=== PATIENT | male | born 1945 | race Caucasian/White ===

== ENCOUNTER 2018-01-16 17:09 | Observation (INO) | payer OTHER ==
[~2018-01-16] VITALS: Ht 182.9 cm; Wt 95.3 kg
[2018-01-16 17:16] VITALS: BP 175/89
[2018-01-16 17:29] LABS: ABSOLUTE EOSINOPHILS 0.2 thou/uL (0.0-0.7); ABSOLUTE LYMPHOCYTES 0.9 thou/uL (0.8-5.3); ABSOLUTE MONOCYTES 0.2 thou/uL (0.0-1.2); ABSOLUTE NEUTROPHILS 3.2 thou/uL (1.6-8.1); BASOPHILS 1.1 %; EOSINOPHILS 3.4 %; HEMATOCRIT 46.3 % (42.0-52.0); HEMOGLOBIN 15.9 gm/dL (14.0-18.0); LYMPHOCYTES 20.1 %; MCHC 34.3 g/dL (28.0-37.0); MCV 87.5 fL (80.0-100.0); MONOCYTES 5.1 %; MPV 8.9 fl. (7.2-11.1); NUCLEATED RBCS 1 /100WBC; PLATELET COUNT* 173 thou/uL (150-400); POLYS 70.3 %; RDW-CV 12.7 % (10.5-14.5); WBC 4.5 thou/uL (4.0-11.0)
[2018-01-16 17:38] LABS: ANION GAP 11 mmol/L (7-16); BUN 16 mg/dL (7-18); CALCIUM 9.6 mg/dL (8.5-10.1); CHLORIDE 96 mmol/L (98-107); CO2 25 mmol/L (21-32); CREATININE 1.2 mg/dL (0.6-1.3); GLUCOSE 399 mg/dL (70-99); POTASSIUM 3.5 mmol/L (3.5-5.1); SODIUM 132 mmol/L (136-145)
[2018-01-16 17:47] LABS: APTT 24.8 Seconds (25.0-31.3); PROTIME 9.4 Seconds (9.20-11.50)
[2018-01-16 17:53] LABS: ALBUMIN 4.2 g/dL (3.4-5.0); ALKALINE PHOSPHATASE 70 U/L (46-116); NT-PRO BRAIN NAT PEPTIDE 382 pg/mL (<300); SGOT 14 U/L (15-37); SGPT 24 U/L (30-65); TOTAL BILIRUBIN 0.7 mg/dL (<0.1-1.0); TOTAL PROTEIN 7.7 g/dL (6.4-8.2); TROPONIN-I LEVEL <0.06 ng/mL (<0.06)
[2018-01-16 19:45] VITALS: BP 149/79
[2018-01-16 20:10] VITALS: BP 186/93
[2018-01-17] VITALS: BP 107/61
[2018-01-17 04:00] VITALS: BP 132/74
[2018-01-17 05:41] LABS: CHOLESTEROL 144 mg/dL (<200); HDL CHOLESTEROL 42 mg/dL (>40); LDL CHOLESTEROL 83 mg/dL (<100); TC:HDL 3.4 Ratio (Not establshd); TRIGLYCERIDE 96 mg/dL (<150); VLDL 19 mg/dL (<40)
[2018-01-17 05:45] LABS: SERUM ASSESSMENT Clear
[2018-01-17 08:00] VITALS: BP 167/84
[2018-01-17] MEDS ORDERED: LISINOPRIL10 MG PO (08:56)
[2018-01-17] MEDS ORDERED: ATORVASTATIN CA40 MG PO (08:56)
[2018-01-17] MEDS ORDERED: ADULT LOW DOSE81 MG PO (08:56)
[2018-01-17] MEDS ORDERED: GLUCOPHAGE XR500 MG PO (08:56)
[2018-01-17] MEDS ORDERED: ANTIVERT25 MG PO (08:56)
[2018-01-17 09:58] VITALS: BP 167/84
[2018-01-18 02:05] LABS: GLYCOHEMOGLOBIN (HGB A1C) 12.4 % (4.8-5.6)
--- NOTE | 2018-01-18 10:23 | EKG ---
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: [facility] : 1945 Requested By: Jackson Rodrigues Order Number: [id number] : Shayne Jarquin Measurements Intervals [place] Rate: 74 P: 12 NM: 179 QRS: 5 QRSD: 103 T: 12 QT: 410 QTc: 455 Interpretive Statements Sinus rhythm Inferior infarct, old No previous ECG available for comparison Electronically Signed On 01-18-2018 10:23:04 CDT by Shayne Jarquin [email or web address] <ELECTRONICALLY SIGNED> By: Shayne Jarquin MD, [facility] 01/18/18 1023 1717 171 Shayne Jarquin MD, [facility] /EPI
== END 2018-01-17 11:30 | disposition home or self-care (01) ==
LOC: M.ERS 17:09 → M.2W 18:51 → M.TBA-ER 18:51 → M.2W 20:04
PROVIDERS: Family Medicine; ADMIT Internal Medicine
DX: R42 Dizziness and giddiness (principal); E11.65 Type 2 diabetes mellitus with hyperglycemia; I10 Essential (primary) hypertension; E78.5 Hyperlipidemia, unspecified

== ENCOUNTER 2019-02-12 11:46 | Inpatient (IN) | payer OTHER ==
[~2019-02-12] VITALS: Ht 182.9 cm; Wt 100.6 kg
--- NOTE | ~2019-02-12 | PROC ---
[facility] [address] [place] [address] PROCEDURE REPORT Name: TABITHA AVILES Room: [address]#: [id number] Admission: 02/12/19 Attend Phys: Katia Gordon Discharge: 03/04/19 Date of : 47 Report #: [id number] THIS REPORT FOR: //name// For GI report, please see the Provation report in Perceptive 7 content. By: 0607Medical Records Staff IRAIDA /JAMES
[~2019-02-12 11:46] MED LIST: ADULT LOW DOSE81 MG PO; ANTIVERT25 MG PO; ATORVASTATIN CA40 MG PO; GLUCOPHAGE XR500 MG PO; LISINOPRIL10 MG PO
[2019-02-12 11:51] VITALS: BP 139/77
[2019-02-12 12:23] LABS: HEMATOCRIT 38.5 % (42.0-52.0); HEMOGLOBIN 12.9 gm/dL (14.0-18.0); MCHC 33.6 g/dL (28.0-37.0); MCV 86.3 fL (80.0-100.0); MPV 8.4 fl. (7.2-11.1); NUCLEATED RBCS 0 /100WBC; PLATELET COUNT* 238 thou/uL (150-400); RBC 4.46 mil/uL (4.50-6.00); RDW-CV 12.7 % (10.5-14.5); WBC 14.2 thou/uL (4.0-11.0)
[2019-02-12 12:35] LABS: CALCIUM 9.1 mg/dL (8.5-10.1); CREATININE 1.2 mg/dL (0.6-1.3)
[2019-02-12 12:39] LABS: ALBUMIN 2.8 g/dL (3.4-5.0); TOTAL BILIRUBIN 0.9 mg/dL (<0.1-1.0); TOTAL PROTEIN 7.3 g/dL (6.4-8.2)
[2019-02-12 13:03] LABS: ABSOLUTE LYMPHOCYTES 0.7 thou/uL (0.8-5.3); ABSOLUTE MONOCYTES 0.6 thou/uL (0.0-1.2); ABSOLUTE NEUTROPHILS 12.9 thou/uL (1.6-8.1); ANISOCYTOSIS 1+; PLATELET ESTIMATE ADEQUATE; POIKILOCYTOSIS 1+
[2019-02-12 13:32] LABS: ESR (SEDRATE) 73 mm/hr (0-20)
[2019-02-12 14:36] VITALS: BP 103/61
[2019-02-12 15:00] VITALS: BP 99/48
--- NOTE | 2019-02-12 16:12 | NUR ---
RECEIVED REPORT FROM ER AT 1500. GET SITUATED TO ROOM. TELE IN PLACED TRACING SR ON MONITOR. AOX4, UP SBA, O2 SAT 90'S RA. DENIES PAIN. PT HAS L HEEL FOUL SMELLING WOUND AND L LOWER EXTREMITY EDEMA NOTED. ADMISSION ASSESSMENT CHARTED. BP RUNS LOW. ON IV FLUIDS. 2 IV ACCESS INTACT. PT REPORT NOT TAKING ANY HOME MEDS. PT FOR ACCU CHECK. HOURLY ROUNDING OBSERVED. CALL LIGHT WITHIN REACH. WILL CONTINUE TO MONITOR.
[2019-02-12 20:56] VITALS: BP 121/57
[2019-02-13] VITALS: BP 112/54
[2019-02-13 04:00] VITALS: BP 105/59
[2019-02-13 05:20] LABS: ABSOLUTE LYMPHOCYTES 0.3 thou/uL (0.8-5.3); ABSOLUTE MONOCYTES 0.6 thou/uL (0.0-1.2); ABSOLUTE NEUTROPHILS 8.7 thou/uL (1.6-8.1); BASOPHILS 0.2 %; EOSINOPHILS 0.3 %; HEMATOCRIT 32.5 % (42.0-52.0); HEMOGLOBIN 11.2 gm/dL (14.0-18.0); LYMPHOCYTES 2.9 %; MCH 29.5 pg (26.0-34.0); MCHC 34.5 g/dL (28.0-37.0); MCV 85.6 fL (80.0-100.0); MONOCYTES 6.2 %; MPV 8.9 fl. (7.2-11.1); NUCLEATED RBCS 0 /100WBC; PLATELET COUNT* 184 thou/uL (150-400); POLYS 90.4 %; RBC 3.79 mil/uL (4.50-6.00); RDW-CV 12.8 % (10.5-14.5); WBC 9.6 thou/uL (4.0-11.0)
[2019-02-13 05:38] LABS: ALBUMIN 2.1 g/dL (3.4-5.0); CALCIUM 8.1 mg/dL (8.5-10.1); CREATININE 1.3 mg/dL (0.6-1.3); POTASSIUM 3.8 mmol/L (3.5-5.1); TOTAL BILIRUBIN 0.4 mg/dL (<0.1-1.0); TOTAL PROTEIN 5.8 g/dL (6.4-8.2)
[2019-02-13 08:00] VITALS: BP 115/61
--- NOTE | 2019-02-13 08:13 | NUR ---
PT IS ABLE TO COMMUNICATE HIS NEEDS TO STAFF EFFECTIVELY. HE HAS DENIED THE NEED FOR PAIN MEDICATION UP TO THIS TIME. HE HAS BEEN NPO SINCE MIDNIGHT FOR PODIATRY CONSULT LATER TODAY. LEFT HEEL HAD SOME FOUL SMELLING, PURULENT DRAINAGE OVERNIGHT; GAUZE AND CURLEX APPLIED.
--- NOTE | 2019-02-13 10:10 | NUR ---
WOUND CARE CONSULT - 73 YEAR OLD MALE PATIENT ADMITTED ON 02/12/19 WITH SEVERE SEPSIS, DIABETIC FOOT ULCER, SEVERE MALNUTRITION, CKD, DIARRHEA & DM. PATIENT VERY LETHARGIC, SO MOST OF HISTORY PROVIDED BY . SHE REPORTS THAT HE RECENTLY REPORTED THAT APPROXIMATELY ONE WEEK AGO, HE STEPPED ON "SOMETHING", AND HE HAD BEEN TREATING WITH NEOSPORIN. SHE ONLY RECENTLY LEARNED ABOUT IT, HE WAS UP AND AMBULATORY OVER THE WEEKEND, WITH NO COMPLAINTS. HE WAS DIAGNOSED WITH DIABETES SEVERAL YEARS AGO, AND PRESCRIBED SOME DIABETES MEDICATION LAST YEAR, BUT HE DOES NOT ADHERE TO DIABETES DIET, TAKE MEDICATIONS OR MONITOR HIS BLOOD SUGARS. HIS HgbA1c WAS 12.8 LAST JANUARY 2018, PENDING NOW. SHE DENIES ANY HISTORY OF SMOKING. HIS LEFT FOOT HAS GENERALIZED 2-3+ EDEMA, MAKING PEDAL PULSES DIFFICULT TO PALPATE, BUT FAINTLY PALPABLE. HE HAS A LARGE BLACK ESCHAR TO HIS POSTERIOR HEEL, APPROXIMATELY 5.2 X 4 CM. UNDERLYING TISSUE IS VERY BOGGY, BUT UNABLE TO DETERMINE ANY DEPTH WITH COTTON SWAB. HE HAS AN ADJACENT NECROTIC AREA ON PLANTAR SURFACE OF HIS FOOT, 1.8 X 0.5 CM. WHICH EXTENDS AT LEAST 2 CM, WITH NECROTIC BLACK MOIST TISSUE IN BASE. NO BONE OR FOREIGN BODY PALPABLE WITH STERILE COTTON SWAB. INTENSE ERYTHEMA SURROUNDING POSTERIOR WOUND IS APPROXIMATELY 14 X 11 CM AND PLANTAR WOUND 14 X 9 CM. TISSUE VERY WARM TO TOUCH AND EXTREMELY TENDER. SMALL AMOUNTS OF ESPINOZA VERY MALODOROUS DRAINAGE FROM BOTH WOUNDS. FOOT CLEANSED WITH SKIN CLEANSER AND WATER, RINSED WELL AND APPLIED ABD & ROLLED GAUZE FOR NOW. TEMP TO 101 YESTERDAY. WBC 14.2 ON ADMISSION, DOWN TO 9.6. H&H 11.2/32.5, ALBUMIN 2.8, HgbA1c PENDING. BLOOD CULTURE X 1 WITH GRAM POSITIVE COCCI, WOUND CULTURE PENDING. XRAY WITH POSSIBLE FOREIGN BODY, AND SUBCUTANEOUS GAS, WITH FASCIITIS NOT EXCLUDED. PATIENT GOING NOW FOR ARTERIAL DOPPLER. PATIENT SEEN BY DR. MURDOCK FROM [facility], NOTING NO SURGERY INDICATED. DR ALEX, PODIATRY, HAS BEEN CONSULTED & I ADVISED OF THE SERIOUS APPEARANCE OF FOOT. HE PLANS TO SEE SHORTLY AND HAS SCHEDULED FOR SURGERY THIS AFTERNOON.
[2019-02-13 11:22] VITALS: BP 100/53
--- NOTE | 2019-02-13 11:27 | NUR ---
SW met with pt to complete initial assessment, introduce self, and SW role, pt was in radiology but came back into the room. Pt lives at home with his . Pt on iv abx; pt thinks that he might be on iv abx for 5 days; pt says she would be able to help with wound care at home and interested in OP iv abx if needed at dc. Pt has RW. SW to continue to follow to assist with safe dc planning.
--- NOTE | 2019-02-13 18:52 | NUR ---
ASSUMED PT CARE REPORT RECEIVED FROM NURSE. PT IS AOX4. TRACING SR ON RAND MAKER. PT ON RA. TYLENOL GIVEN FOR INCREASED TEMPERATURE WHICH WAS RESOLVED LATER THIS SHIFT. WOUND CARE PERFORMED BY WOUND CARE NURSE IN ROOM. THEN PT WENT FOR SX AT 1500 IN L FOOT. DEBRIDEMENT PERFORMED. LEFT FOOT WELL WRAPPED WITH VALENTINA CO BAND, BOOT APPLIED. PT COMPLAINS OF PAIN IN L FOOT. NORCO GIVEN. IV FLUID INFUSING ORDERED. IV ABX GIVEN THIS SHIFT ORDERED. UA PENDING. DIET RESTARTED. INSULIN GIVEN BEFORE DINER. CALL LIGHT AT REACH. WILL CONTINUE TO MONITOR
[2019-02-13 20:54] VITALS: BP 107/56
[2019-02-14] VITALS: BP 98/53
[2019-02-14 02:06] LABS: GLYCOHEMOGLOBIN (HGB A1C) 13.8 % (4.8-5.6)
[2019-02-14 04:00] VITALS: BP 120/63
--- NOTE | 2019-02-14 05:29 | NUR ---
PT IS ABLE TO COMMUNICATE HIS NEEDS TO STAFF WITH ONLY MINOR DIFFICULTY; HE IS DROWSY AT TIMES. HE HAS DENIED THE NEED FOR PAIN MEDICATION UP TO THIS TIME. PARTIAL WT BEARING TO HIS LEFT FOOT. VASCULAR SURGERY, PODIATRY, ID ARE CONSULTED.
[2019-02-14 08:00] VITALS: BP 92/47
--- NOTE | 2019-02-14 10:58 | NUR ---
ASSUMED PT CARE REPORT RECEIVED FROM NURSE. PT IS AOX4 , TRACING SR ON NEUROSCIENTIST, ON RA O2 SATURATION IS 94%. PT DENIES PAIN, N/V. BUT PT IS VERY SLEEPY AND HAD POOR APPETITE. ENSURE GIVEN AND CONSUMED COMPLETELY BY PT. PT ATE SMALL AMOUNT OF HER BREAKFAST. INSULIN GIVEN ORDERED. AT BEDSIDE. IV FLUID INFUSING WELL IV ABX. NURSE WILL MONITOR FOR URINARY RETENTION WITH BLADDER SCANNING AT 1200 TODAY. WOUND SITE AT L FOOT IS INTACTLY WRAPPED WITH VALENTINA CO BAND. WILL CONTINUE TO MONITOR
[2019-02-14 11:18] VITALS: BP 117/60
--- NOTE | 2019-02-14 13:12 | NUR ---
PT BLADDER SCANNED AT 1300. 153 CC. IV FLUID STOPPED PER DR ORDER. ZOSYN INFUSING. PT HAS HICKUPS.DR ORDERS IN. WILL FOLLOW
--- NOTE | 2019-02-14 14:49 | NUR ---
CRITICAL LAB VALUE FOR VANCO COMMUNICATED TO THIS NURSE BY LABORATORY AT 1414. VANCO 29. THIS NURSE CONTACTED INFECTIOUS DISEASE DOCTOR TO LET HIM KNOW.MESSAGE LEFT. VANCO HAS BEEN HELD PER PHARMACY PER PROTOCOL. THROUGH TIME TO BE RECHECKED PER PROTOCOL
[2019-02-14 15:57] VITALS: BP 118/55
--- NOTE | 2019-02-14 16:56 | NUR ---
pt bladder scanned at this time. scan shows retention of 424cc. dr made aware. no urination recorded for the day.pt denies any urination as well for the day.
--- NOTE | 2019-02-14 18:43 | NUR ---
UROLOGY CONSULTED. TILLMAN CATHETER INSERTED ORDERED. PT WAS IN LOT OF PAIN WHILE INSERTING TILLMAN CATHETER. URINE OUTPUT OF 200 CC DARK YELLOW WITH SEDIMENT COLLECTED FROM TILLMAN BAG. NORCO GIVEN FOR PAIN. PT HAD AN EPISODE OF INCONTENENT BOWEL MOVEMENT IN BED. PT WAS CLEANED. WILL CONTINUE TO MONITOR PT
--- NOTE | 2019-02-14 18:48 | NUR ---
WOUND IN LEFT FOOT IS WELL WRAPPED POST SX. NO DRAINAGE. TOES ARE SWOLLEN AND KEPT ELEVATED IN BOOT. TOES ARE WARM TO TOUCH
[2019-02-14 20:46] VITALS: BP 106/54
[2019-02-15] VITALS: BP 94/46
[2019-02-15 04:00] VITALS: BP 119/59
[2019-02-15 04:33] LABS: URINE BILIRUBIN NEGATIVE (Negative); URINE BLOOD 3+ (Negative); URINE CLARITY SL CLOUDY; URINE COLOR YELLOW; URINE GLUCOSE-RANDOM NEGATIVE (Negative); URINE KETONES NEGATIVE (Negative); URINE LEUKOCYTES-REFLEX 1+ (Negative); URINE NITRITE-REFLEX NEGATIVE (Negative); URINE PROTEIN TRACE (Negative); URINE UROBILINOGEN 0.2 E.U./dl (0.2-1.0)
[2019-02-15 04:42] LABS: AMORPHOUS URATES Moderate /LPF (None Seen); BACTERIA-REFLEX 1-9 Few /HPF (None Seen); COARSE GRANULAR CASTS 0-3 Few /LPF (None Seen); HYALINE CASTS 0-3 Few /LPF (None Seen); SQUAMOUS 0-3 Few /LPF (0-3); URINE RBC >20 Many /HPF (0-2); URINE WBC-REFLEX 6-15 Few /HPF (0-5)
--- NOTE | 2019-02-15 06:05 | NUR ---
PT IS ABLE TO COMMUNICATE HIS NEEDS TO STAFF EFFECTIVELY. HE HAS DENIED THE NEED FOR PAIN MEDICATION UP TO THIS TIME. TILLMAN IS PATENT. URINE SENT TO LAB IS HIGHLY SUSPICIOUS FOR A UTI; HE IS ALREADY RECEIVING ANTIBIOTICS.
[2019-02-15 07:40] VITALS: BP 104/51
[2019-02-15 09:53] LABS: ABSOLUTE BASOPHILS 0.1 thou/uL (0.0-0.2); ABSOLUTE EOSINOPHILS 0.1 thou/uL (0.0-0.7); ABSOLUTE LYMPHOCYTES 0.5 thou/uL (0.8-5.3); ABSOLUTE MONOCYTES 0.7 thou/uL (0.0-1.2); ABSOLUTE NEUTROPHILS 9.1 thou/uL (1.6-8.1); BASOPHILS 0.6 %; EOSINOPHILS 1.4 %; HEMATOCRIT 32.9 % (42.0-52.0); LYMPHOCYTES 4.5 %; MCH 29.1 pg (26.0-34.0); MCHC 33.4 g/dL (28.0-37.0); MCV 87.2 fL (80.0-100.0); MONOCYTES 6.3 %; MPV 8.9 fl. (7.2-11.1); NUCLEATED RBCS 0 /100WBC; PLATELET COUNT* 201 thou/uL (150-400); POLYS 87.2 %; RBC 3.78 mil/uL (4.50-6.00); RDW-CV 13.5 % (10.5-14.5); WBC 10.4 thou/uL (4.0-11.0)
[2019-02-15 10:04] LABS: ALBUMIN 1.7 g/dL (3.4-5.0); CALCIUM 8.4 mg/dL (8.5-10.1); POTASSIUM 3.7 mmol/L (3.5-5.1); TOTAL BILIRUBIN 0.5 mg/dL (<0.1-1.0); TOTAL PROTEIN 6.1 g/dL (6.4-8.2)
[2019-02-15 10:08] LABS: CREATININE 2.9 mg/dL (0.6-1.3)
--- NOTE | 2019-02-15 10:29 | CON ---
[address] [address] CONSULTATION Name: TABITHA AVILES Room: [address] IN .R.#: [id number] Admission: 02/12/19 Attend Phys: Katia Gordon Discharge: Date of : 47 Report #: [id number] THIS REPORT FOR: //name// CC: Carola Montalvo DATE OF SERVICE: 02/12/2019 CONSULTATION: Infectious diseases. 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 The patient gives no history of trauma or predisposing circumstance. He noted about 7-10 days ago, the hindfoot on the left side was becoming red, warm, increasingly tender. The foot swelled up. The patient developed possible some fevers and developed GI symptoms with nausea, vomiting, diarrhea, and anorexia. The foot became more painful, so he presented to the hospital where a large necrotic eschar with foul smelling drainage was noted. Infectious Disease consultation was requested. PAST MEDICAL HISTORY: Significant for diabetes. The patient basically has neglected his diabetes. He does not check his sugar, take medication or watch his diet. He does not have a primary care doctor. He probably has not seen a doctor since he was in the ER a year ago with vertigo. The patient also has hypertension which he also was not treating. The patient denies any other medical problems. ALLERGIES: Denies any drug allergies. SOCIAL HISTORY: The patient is . 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 He lives at home with his and brother. He denies history of tobacco, alcohol or drugs. REVIEW OF SYSTEMS: CONSTITUTIONAL: Possibly febrile, but not measured. No rigors. EAR, NOSE AND THROAT: The patient denies headache, sinus congestion, sore throat, trouble swallowing. He does have some generalized weakness and malaise. CHEST: The patient denies cough, chest pain or shortness of breath. No angina, syncope or palpitation. The patient has nausea, some vomiting one episode at least once. He has had some diarrhea. Denies abdominal pain. GENITOURINARY: The patient denies polyuria, polydipsia or frequency. EXTREMITIES: No complaints except for pain in his left foot. PHYSICAL EXAMINATION: GENERAL: The patient appears his stated age, alert, oriented, comfortable, not in any distress. VITAL SIGNS: Temperature is 38.3. [place] [address] CONSULTATION Name: TABITHA AVILES Room: [address]#: [id number] Admission: 02/12/19 Attend Phys: Katia Gordon Discharge: Date of : 47 Report #: [id number] SKIN: Shows obvious change in left foot, described below. No other rash, lesion or exanthem. EAR, NOSE AND THROAT: Negative. Mentation is appropriate. HEART: Sounds S1, S2. Regular rate and rhythm. LUNGS: Clear. ABDOMEN: Belly soft, not tender without mass or organomegaly. EXTREMITIES: The left foot has obvious changes. There are several black eschars on the heel measuring 2-5 cm. They feel somewhat fluctuant underneath the eschar. I was able to produce a minimal amount of fluid with pressure. There is diffuse erythema around the heel and wrapping around up towards the ankle. The left foot is very swollen. I cannot appreciate pulses in the foot because of the edema. The right foot had good pulses. Both feet had good capillary refill and the nails appear to be in good repair. The foot had a foul necrotic odor, noticeable as soon as I [id number] room. LABORATORY DATA: White count was 14.2, hemoglobin 12.9, hematocrit 38.5, platelet 238,000. Electrolytes: Sodium 129, potassium 4.0, chloride 91, bicarbonate 22, BUN 20, creatinine 1.2, glucose 296. Liver function tests are normal. Blood cultures x [address] of the abdomen is unremarkable. IMPRESSION AND PLAN: Deep tissue injury with infection and necrosis. I would like to change antibiotic to vancomycin plus Zosyn. We will obtain cultures for aerobes and anaerobes from the foot. I asked the wound care nurse see the patient tomorrow and measure, photograph, and assess the foot. I would like to have dietitian see the patient regarding possible protein and Martell supplementation as well as a diabetic diet. We will look for metabolic impediments to wound healing such as low thyroid, low zinc as well as check a BNP. We ordered a followup CBC and BMP because of previous abnormalities. I would like to offload the heel using a Primo boot. We will use Silvadene and gauze to the wound. I would like have Dr. Ojeda look at the foot tomorrow. I believe he may benefit from debridement with removal of the eschar, non viable tissue and underneath. The patient may need an MRI to check the bone, although with a history of only 7-10 days of infection, osteomyelitis would be less likely. I appreciate the opportunity of input in the care of this complex patient. I will be happy to follow with you and assist with evaluation. I discussed with the patient the need to take his diabetes seriously as he is at high risk for severe complications such as these foot infections, which lead amputation as well as other problems such as stroke, heart attack, blindness dialysis, etc. <ELECTRONICALLY SIGNED> By: Shashi Negron MD 02/15/19 1029 2204 [id number] Negron MD /nt
[2019-02-15 11:58] VITALS: BP 111/59
--- NOTE | 2019-02-15 13:23 | NUR ---
SW spoke with pt about safe dc planning and SNF recommendation and provided list of SNFs. Pt was uncertain of preferences but was okay with plan. SW spoke with pt who provided preferences: 1) [facility] 2) [facility] 3) [facility]. SW faxed referral to [facility] pending therapy notes. SW to continue to follow to assist with safe dc planning/snf placement. [facility] ph [phone] fax [phone]
--- NOTE | 2019-02-15 15:09 | NUR ---
RIGHT BASILIC VESSEL ACCESSED FOR SINGLE LUMEN PICC. LINE PRE-TRIMMED TO 42CM AND ADVANCED TO THE ZERO SHERRY WITH NO RESISTANCE MET. UPPER ARM CIRCUMFERENCE ABOVE INSERTION SITE= 12 1/2". SHERLOCK MAGNET AND 3CG CONFIRMATION OF TIP TERMINATION AT THE CAVOATRIAL JUNCTION APPRECIATED.STYLET REMOVED, LINE FLUSHED AND REPORT GIVEN TO GENA SHAFER.
--- NOTE | 2019-02-15 15:45 | NUR ---
ASSESSMENT COMPLETE. PT VERY DROSWY MOST OF THE DAY. PT DRANK PROTEIN SHAKE FOR LUNCH. IV FLUIDS STARTED THIS AFTERNOON. PT RESPONDS TO VOICE BUT FALLS BACK TO SLEEP QUICKLY. PT HAD PICC PLACEMENT THIS AFTERNOON. INFUSION NURSE AND THIS NURSE SIGNED CONSENT WITH PATIENT. DRESSING CHANGED BY DR ALEX. UROLOGY CONSULT, WILL LEAVE TILLMAN AT THIS TIME. CASE MANAGEMENT CONSULT FOR PLACEMENT AT [place]. PT/OT CONSULT. SR WITH 1ST DEGREE BLOCK ON TELE MONITOR. THORAZINE GIVEN FOR HICCUPS. Q2 TURN. ACCU CHECK. SEE ASSESSMENT AND VITALS FOR OTHER DETAILS. CALL LIGHT WITHIN REACH. WILL CONTINUE PLAN OF CARE
[2019-02-15 16:00] VITALS: BP 109/55
[2019-02-15 20:00] VITALS: BP 108/50
[2019-02-16] VITALS: BP 119/56
[2019-02-16 04:00] VITALS: BP 115/56
[2019-02-16 04:47] LABS: HEMATOCRIT 30.7 % (42.0-52.0); HEMOGLOBIN 10.3 gm/dL (14.0-18.0); MCH 29.2 pg (26.0-34.0); MCHC 33.4 g/dL (28.0-37.0); MCV 87.4 fL (80.0-100.0); MPV 8.9 fl. (7.2-11.1); NUCLEATED RBCS 0 /100WBC; PLATELET COUNT* 199 thou/uL (150-400); RBC 3.51 mil/uL (4.50-6.00); RDW-CV 13.4 % (10.5-14.5)
[2019-02-16 04:58] LABS: CALCIUM 7.9 mg/dL (8.5-10.1); POTASSIUM 3.7 mmol/L (3.5-5.1)
[2019-02-16 05:03] LABS: CREATININE 3.9 mg/dL (0.6-1.3)
[2019-02-16 06:33] LABS: ABSOLUTE LYMPHOCYTES 0.6 thou/uL (0.8-5.3); ABSOLUTE MONOCYTES 0.1 thou/uL (0.0-1.2); ABSOLUTE NEUTROPHILS 9.3 thou/uL (1.6-8.1); PLATELET ESTIMATE ADEQUATE
[2019-02-16 08:00] VITALS: BP 120/60
[2019-02-16 12:06] VITALS: BP 134/99
--- NOTE | 2019-02-16 13:13 | NUR ---
Spoke with Lucinda at [facility], she will out to complete an onsite on Monday.
[2019-02-16 15:41] VITALS: BP 128/62
--- NOTE | 2019-02-16 16:55 | NUR ---
ASSUMED PT CARE AT 0700, PT ALERT TO SELF AND AND FACT HE IS IN HOSPITAL BUT UNSURE TO WHY. VSS, RA, PORTER MARINA TRACING SINUS RHYTHM WITH 1ST DEGREE AV BLOCK, FULL ASSESSMENT CHARTED. PT POCKETING PILLS IN CHEEK, DR CUETO NOTIFIED AND [facility] ORDERED, PT REFUSING TO EAT BUT WILL TAKE SMALL DRINKS OF WATER AND ENSURE. TILLMAN CATH DRAINING MINIMAL DARK YELLOW URINE WITH MINIMAL SEDIMENT, PATENT AND SECURED BY STATLOCK. PT REMAINS DROWSY, REFUSED TO GET OUT OF BED FOR THERAPY. DRESSING TO LEFT FOOT CLEAN, DRY, AND INTACT, CHANGED BY DR COREAS DAILY, PT DENIES ANY PAIN, HOURLY ROUNDING COMPLETED.
[2019-02-16 20:00] VITALS: BP 108/49
[2019-02-17] VITALS: BP 133/60
[2019-02-17 04:00] VITALS: BP 122/60
[2019-02-17 08:00] VITALS: BP 124/60
[2019-02-17 11:30] VITALS: BP 134/60
[2019-02-17 16:00] VITALS: BP 129/65
[2019-02-17 16:13] LABS: URINE BILIRUBIN NEGATIVE (Negative); URINE BLOOD 2+ (Negative); URINE CLARITY SL CLOUDY; URINE COLOR YELLOW; URINE GLUCOSE-RANDOM NEGATIVE (Negative); URINE KETONES NEGATIVE (Negative); URINE LEUKOCYTES-REFLEX TRACE (Negative); URINE NITRITE-REFLEX NEGATIVE (Negative); URINE PROTEIN TRACE (Negative); URINE SPECIFIC GRAVITY 1.015 (1.005-1.030); URINE UROBILINOGEN 0.2 E.U./dl (0.2-1.0)
[2019-02-17 16:20] LABS: URINE POTASSIUM-RANDOM 13.6 mmol/L
[2019-02-17 16:27] LABS: AMORPHOUS URATES Moderate /LPF (None Seen); COARSE GRANULAR CASTS 4-10 Moderate /LPF (None Seen); SQUAMOUS 0-3 Few /LPF (0-3)
[2019-02-17 16:28] LABS: BACTERIA-REFLEX 1-9 Few /HPF (None Seen); URINE RBC 3-10 Few /HPF (0-2); URINE WBC-REFLEX 6-15 Few /HPF (0-5)
--- NOTE | 2019-02-17 18:05 | NUR ---
ASSUMED PT CARE AT 0700, PT A&O TO SELF, FAMILY MEMBERS AND PLACE, APPEARS MORE ALERT AND LESS LETHARGIC COMPARED TO YESTERDAY. PT C/O PAIN IN LEFT FOOT AT SURGICAL SITE, PRN FENTANYL AND NORCO ON BOARD. PT ABLE TO EAT SMALL BITES OF SOFT FOODS THIS SHIFT. TILLMAN PATENT AND DRAINING YELLOW URINE WITH MINIMAL SEDIMENT. DR EGAN IN FOR DRESSING CHANGE, DRESSING TO WOUND CLEAN, DRY, AND INTACT, PICTURES TAKEN AND PLACED IN CHART. REMAINS AT BEDSIDE, HOURLY ROUNDING COMPLETED.
[2019-02-17 20:00] VITALS: BP 126/65
[2019-02-18] VITALS: BP 113/72
[2019-02-18 04:00] VITALS: BP 127/65
[2019-02-18 04:57] LABS: ABSOLUTE BASOPHILS 0.1 thou/uL (0.0-0.2); ABSOLUTE EOSINOPHILS 0.2 thou/uL (0.0-0.7); ABSOLUTE LYMPHOCYTES 0.5 thou/uL (0.8-5.3); ABSOLUTE MONOCYTES 0.7 thou/uL (0.0-1.2); BASOPHILS 0.6 %; EOSINOPHILS 2.1 %; HEMATOCRIT 30.7 % (42.0-52.0); HEMOGLOBIN 10.4 gm/dL (14.0-18.0); LYMPHOCYTES 5.6 %; MCH 29.4 pg (26.0-34.0); MCHC 33.8 g/dL (28.0-37.0); MCV 86.9 fL (80.0-100.0); MONOCYTES 7.6 %; MPV 8.5 fl. (7.2-11.1); NUCLEATED RBCS 0 /100WBC; PLATELET COUNT* 204 thou/uL (150-400); POLYS 84.1 %; RBC 3.53 mil/uL (4.50-6.00); RDW-CV 13.3 % (10.5-14.5); WBC 9.5 thou/uL (4.0-11.0)
[2019-02-18 05:09] LABS: ALBUMIN 1.4 g/dL (3.4-5.0); CREATININE 4.8 mg/dL (0.6-1.3); TOTAL BILIRUBIN 0.3 mg/dL (<0.1-1.0); TOTAL PROTEIN 5.9 g/dL (6.4-8.2)
[2019-02-18 08:00] VITALS: BP 134/66
[2019-02-18 11:22] VITALS: BP 132/56
--- NOTE | 2019-02-18 16:06 | PATH ---
[address] [address] PATHOLOGY RPT PROCEDURE Name: TABITHA AVILES Room: [address] IN M.R.#: [id number] Admission: 02/12/19 Date of : 47 Discharge: Report #: [id number] Path Case #: [id number] [facility] Accession Number: [id number] . 01 Material submitted: . ankle - BONE LEFT CALCANEOUS. Modifiers: left . 01 Clinical history: . Abscess left heel . 02 Diagnosis: Bone, left calcaneous, debridement: - Portion of unremarkable bone. - Attached fibrous tissue with degenerative changes and focal acute inflammation. . (SKM:mmdeborah; 02/15/2019) QLM/02/15/2019 . 02 Electronically signed: . Lake Meyer MD, Pathologist NPI- [id number] . 01 Gross description: . Received in formalin labeled "Tabitha Aviles, bone left calcaneous," is a flat, roughly rectangular segment of granular, yellow-bazan bone with attached araujo-bazan soft tissue measuring 2.0 x 1.4 x 0.4 cm in greatest dimensions. The bone margin is inked black. Serial sectioning reveals yellow-bazan to bazan-brown, partially calcified cut surfaces. The specimen is serially sectioned and submitted entirely in cassette A1, following decalcification. (DAC; 02/14/2019) XDC/XDC . 02 Pathologist provided ICD-10: M79.89, L02.612 . 02 CPT . 776654, 191013 Specimen Comment: A courtesy copy of this report has been sent to Specimen Comment: [phone], , . Specimen Comment: Report sent to ,DR CUETO / DR PAPPAS Specimen Comment: A duplicate report has been generated due to demographic updates. Performed at: [address] [facility], [place] [id number] MD Deandre Patterson MD Phone: [phone] [place] [address] PATHOLOGY RPT PROCEDURE Name: TABITHA AVILES Room: [place] [address] ADM IN .R.#: [id number] Admission: 02/12/19 Date of : 47 Discharge: Report #: [id number] Path Case #: [id number] Performed at: 02 [facility] Chino Christensen [address] [place]én[place], LESLIE Calderon [id number] MD Damir Metcalf MD Phone: [phone]
[2019-02-18 16:11] VITALS: BP 156/73
--- NOTE | 2019-02-18 16:35 | NUR ---
SW followed up with [facility], Lucinda came to visit the pt and speak with pt nurse. Lucinda reported that due to pt wounds, they would most likely not be able to meet pt needs but would consider if pt status changes such as possible amputation (as pt nurse mentioned might be the case according to Dr Ojeda.) SW to continue to follow to assist with safe dc planning/SNF placement when needed; will be pending acceptance and auth at that time.
--- NOTE | 2019-02-18 18:45 | NUR ---
ASSUMED PT CARE AT 0700, PT A&O X4, FORGETFUL, LETHARGIC, RA, VSS, PORT SURVEYOR TRACING SINUS RHYTHM WITH 1ST DEGREE AV BLOCK, UP TO SIDE OF BED WITH PT THIS SHIFT, FULL ASSESSMENT CHARTED. VASCULAR TEAM IN TO SPEAK TO FAMILY AND PT THIS SHIFT ON POSSIBLE BKA. PTS INTAKE VERY POOR, TILLMAN CATH PATENT AND DRAINING LIGHT YELLOW URINE WITH MINIMAL SEDIMENT, INCREASED OUTPUT THIS SHIFT. Q2 HOUR TURNS AND HOURLY ROUNDING COMPLETED.
[2019-02-18 20:25] VITALS: BP 143/74
[2019-02-19] VITALS: BP 125/52
[2019-02-19 04:00] VITALS: BP 127/58
[2019-02-19 05:14] LABS: ABSOLUTE EOSINOPHILS 0.1 thou/uL (0.0-0.7); ABSOLUTE LYMPHOCYTES 0.5 thou/uL (0.8-5.3); ABSOLUTE MONOCYTES 0.7 thou/uL (0.0-1.2); BASOPHILS 0.4 %; EOSINOPHILS 1.2 %; HEMATOCRIT 28.5 % (42.0-52.0); HEMOGLOBIN 9.9 gm/dL (14.0-18.0); LYMPHOCYTES 5.1 %; MCHC 34.7 g/dL (28.0-37.0); MCV 86.4 fL (80.0-100.0); MONOCYTES 6.4 %; MPV 8.6 fl. (7.2-11.1); NUCLEATED RBCS 0 /100WBC; PLATELET COUNT* 212 thou/uL (150-400); POLYS 86.9 %; RDW-CV 13.1 % (10.5-14.5); WBC 10.4 thou/uL (4.0-11.0)
--- NOTE | 2019-02-19 05:15 | NUR ---
PT SLEPT WELL OVERNIGHT, AWAKENS WITH MEDS AND CARES AND BACK TO SLEEP. AOX3, DROWSY. DENIES NEED FOR PAIN MED THIS SHIFT. LLE WITH DRSG CDI AND BOOT IN PLACE. PT TURNED AND REPOSITIONED Q2 HOURS AND PRN FOR SKIN INTEGRITY AND COMFORT. TILLMAN DRAINING YELLOW URINE. INCONT MUSHY BM OVERNIGHT, ONELIA CARE GIVEN. MEPILEX CDI TO COCCY-SITE OF DEEP TISSUE INJUY IT APPEARS. HAIR PICC IVF INFUSING PER PUMP. AM LABS DRAWN AND SENT TO LAB. TOOK PILL AT HS IN PUDDING, CHEWING IT AND SWALLOWING IT DOWN WITH WATER. HS ACCUCHECK 190, PT HAD 1/2 BOTTLE OF NUTRITION DRINK ABOUT 40 MINUTES BEFORE, DAY RN STATES HE HAS NOT BEEN EATING MUCH. INSULIN HELD AT HS TO PREVENT PROBLEMS WITH LOW BLOOD SUGAR OVERNIGHT. TELE SR WITH LAURA. CALL LITE IN EASY REACH.
[2019-02-19 05:31] LABS: ALBUMIN 1.5 g/dL (3.4-5.0); CALCIUM 7.7 mg/dL (8.5-10.1); CREATININE 4.9 mg/dL (0.6-1.3); TOTAL BILIRUBIN 0.3 mg/dL (<0.1-1.0); TOTAL PROTEIN 5.8 g/dL (6.4-8.2)
[2019-02-19 05:42] LABS: PREALBUMIN 7.1 mg/dL (18.0-35.7)
[2019-02-19 08:00] VITALS: BP 157/61
[2019-02-19 12:07] VITALS: BP 131/59
--- NOTE | 2019-02-19 14:12 | NUR ---
WOUND CARE: CONSULT FOR DEEP TISSUE INJURY LEFT BUTTOCK PT ADMITTED 02/13/19 WITH DFU LEFT HEEL, RITIKA FOLLOWING FOR TREATMENT. NEW CONSULT RECIEVED FOR DTI. PT HAS 2 AREAS TO THE LEFT BUTTOCK NEAR THE COCCYX. THE ONE CLOSEST TO COCCYX MEASURES 0.7X1.1X0.0 CM. IT IS DEEP PURPLE AND DOES NOT MERLIN. THERE IS A SECOND SHUTTLE TRUCK DRIVER PURPLE AREA APPROX 0.5 CM FROM THE 1ST ONE. IT MEASURES 0.5X1.7X0.0 CM, IT DOES NOT MERLIN. THE ONELIA WOUND SKIN IS BRIGHT RED AND IS BLANCHABLE. THE PT DID EXPERIENCE SOME PAIN WHEN REMOVING THE OLD FOAM DRESSING.THERE IS NO INDURATION OR DRAINAGE NOTED THE WOUNDS WERE WASHED WITH WOUND CLEANSER AND PATTED DRY. BOAREDED FOAM DRESSING APPLIED. THE PATIENT WAS INSTRUCTED TO TRY TO REMAIN OFF HIS BOTTOM MUCH POSSIBLE. PT VERBALIZED UNDERSTANDING. PTS LEFT HEEL WOUND WAS DRESSED BY PHYSICIAN THIS AM ACCORDING TO THE NURSE. THERE WAS SOME DRAINAGE COMING THROUGH THE KERLIX. THIS WAS REENFORCED WITH ABD AND SMALL AMOUNT OF KERLIX. PT INSTRUCTED TO WEAR OFFLOADING BOOT AND KEEP FOOT ELEVATED ON PILLOW WHEN IN BED. PT VERBALIZED UNDERSTANDING.
[2019-02-19 15:53] VITALS: BP 140/91
--- NOTE | 2019-02-19 18:30 | NUR ---
ASSUMED PT CARE AT 0700, PT A&O X4, VSS, RA, VALVING MACHINE OPERATOR TRACING SINUS RHYTHM WITH 1ST DEGREE AV BLOCK, UP WITH ASSIST X1 AND WALKER TO CHAIR, FULL ASSESSMENT CHARTED. PT ATE 100% OF 3MEALS THIS SHIFT, TOLERATED WELL, TILLMAN IS PATENT WITH CLEAR YELLOW URINE. FAMILY AT BEDSIDE, HOURLY ROUNDING COMPLETED.
[2019-02-19 19:07] LABS: COMPLEMENT-C4 15 mg/dL (14-44); IgA 327 mg/dL (61-437); IgG 1351 mg/dL (700-1600); IgM 76 mg/dL (15-143)
[2019-02-19 20:00] VITALS: BP 147/70
[2019-02-20] VITALS (7 sets, daily range): BP systolic 131–164; BP diastolic 59–81
[2019-02-20 05:34] LABS: HEMOGLOBIN 9.4 gm/dL (14.0-18.0); MCHC 33.9 g/dL (28.0-37.0); MCV 85.8 fL (80.0-100.0); MPV 7.8 fl. (7.2-11.1)
--- NOTE | 2019-02-20 05:35 | NUR ---
ASSUMED CARE OF PT AFTER REPORT AT 1930. PT A&OX4. FORGETFUL AT TIMES. PT ON RA. PT TRACING SR 1ST DEG ON TELE. PT WITH TILLMAN TO DEPENDENT DRAIN. PT WITH PICC LINE PATENT AND INTACT. PT TURNED TO SIDES. PT DENIES ANY PAIN OR DISCOMFORT. PT ABLE TO SLEEP WELL ON BED. CALL LIGHT WITHIN REACH.
[2019-02-20 05:36] LABS: ABSOLUTE EOSINOPHILS 0.2 thou/uL (0.0-0.7); ABSOLUTE LYMPHOCYTES 0.6 thou/uL (0.8-5.3); ABSOLUTE MONOCYTES 0.7 thou/uL (0.0-1.2); ABSOLUTE NEUTROPHILS 7.1 thou/uL (1.6-8.1); BASOPHILS 0.3 %; EOSINOPHILS 2.1 %; HEMATOCRIT 27.7 % (42.0-52.0); LYMPHOCYTES 6.4 %; MONOCYTES 8.1 %; NUCLEATED RBCS 0 /100WBC; PLATELET COUNT* 215 thou/uL (150-400); POLYS 83.1 %; RBC 3.23 mil/uL (4.50-6.00); RDW-CV 13.5 % (10.5-14.5); WBC 8.6 thou/uL (4.0-11.0)
[2019-02-20 05:41] LABS: CALCIUM 7.5 mg/dL (8.5-10.1); CREATININE 4.7 mg/dL (0.6-1.3); POTASSIUM 3.3 mmol/L (3.5-5.1)
[2019-02-20 07:12] LABS: HEPATITIS B SURFACE AG Negative (Negative)
--- NOTE | 2019-02-20 13:08 | CON ---
[address] [address] CONSULTATION Name: TABITHA AVILES Room: [address] IN .R.#: [id number] Admission: 02/12/19 Attend Phys: Katia Gordon Discharge: Date of : 47 Report #: [id number] THIS REPORT FOR: //name// CC: Carola Montalvo DATE OF SERVICE: 02/16/2019 CHIEF COMPLAINT: Status post debridements, left calcaneus and soft tissue infection with osteomyelitis. HISTORY OF PRESENT ILLNESS: Surgical bone and tissue cultures grew group B streptococcus. Surgical pathology shows acute inflammation of the submitted portion of calcaneus. Vascular Surgery has evaluated the patient with no acute indication for intervention with no high-grade stenoses noted to the extremity. He is on parenteral linezolid and Zosyn with good tolerance. He has had a decrease in renal function with elevated creatinine at 3.9. Recent hemoglobin A1c was 13.8. He is somewhat lethargic, able to orient to person and place. He relates mild pain into the left foot. LABORATORY DATA: WBC 10.0, RBC 3.51, hemoglobin 10.3, hematocrit 30.7, and platelets 199. BUN 49, creatinine 3.9, and glucose 235. PHYSICAL EXAMINATION: VITAL SIGNS: Temperature 98.4, pulse 76, respirations 16, and blood pressure 120/60. MUSCULOSKELETAL: Large postoperative wound to the left plantar lateral calcaneus down to the bone. The bone is intact with some overlying brownish slough. The wound is mostly fibronecrotic tissue and most of the plantar lateral calcaneus is exposed. The periwound inflammation is decreased, and overall the extremities are stable from an acute vascular standpoint, but there has been extensive soft tissue loss from the infection. No pallor or cyanosis to the extremity. No left popliteal adenopathy. The periwound area is moderately painful to the touch. No acute bleeding noted. No fluctuance or crepitation to the adjacent wound margins. IMPRESSION: 1. Osteomyelitis with deep tissue infection, left calcaneus. 2. Type 2 diabetes mellitus with poor glycemic control. PLAN: The wound was cleansed, dried and redressed with Xeroform, ABDs, Kerlix and Sukhwinder with a PRAFO boot for offloading. I explained to the patient that he may require further surgical debridement down the road in an attempt to salvage the extremity. He may have remaining osteomyelitis to the inferior calcaneus. Other option includes left below knee amputation. From a limb salvage standpoint, it will require further tissue/bone debridement, wound vacuum, [place] [address] CONSULTATION Name: TABITHA AVILES Room: [address] IN M.R.#: [id number] Admission: 02/12/19 Attend Phys: Katia Gordon Discharge: Date of : 47 Report #: [id number] offloading, improved glycemic control, and the patient's compliance with strict nonweightbearing. I will discuss conservative and surgical options with the patient's today. <ELECTRONICALLY SIGNED> By: Manjeet Ojeda DPM 02/20/19 1308 1204 [id number] Ojeda DPM /nt
--- NOTE | 2019-02-20 13:08 | CON ---
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 I recommend below-knee amputation, and the patient and had a discussion with Dr. Austin yesterday regarding this. The patient does not seem ready to make that decision at this point. I do not recommend further surgical debridement of the calcaneus, as I do not feel it is salvageable. The patient has acute renal failure, baseline unknown. He seems slightly more alert today. He has been afebrile, moderate pain of the extremity. PHYSICAL EXAMINATION: EXTREMITIES: The bandage is intact, dry, and clean. I did not change it since it is in good shape, clean and dry. No lesions noted to the other extremity. PLAN: I recommend below-knee amputation as I do not feel this is a salvageable extremity and is posing a threat to his overall medical health. I will discuss with the patient and follow. <ELECTRONICALLY SIGNED> By: Manjeet Ojeda DPM 02/20/19 1308 0846 [id number] Ojeda DPM /les
--- NOTE | 2019-02-20 13:08 | CON ---
[address] [address] CONSULTATION Name: TABITHA AVILES Room: [address] IN M.R.#: [id number] Admission: 02/12/19 Attend Phys: Katia Gordon Discharge: Date of : 47 Report #: [id number] THIS REPORT FOR: //name// CC: Carola Montalvo DATE OF SERVICE: 02/17/2019 CHIEF COMPLAINT: Postoperative left heel wound with osteomyelitis and deep tissue infection. Surgical cultures grew group B streptococcus and Streptococcus species. Preoperative swab culture grew Enterococcus faecalis. The parenteral linezolid was discontinued and switched to ceftriaxone and he remains on Zosyn. He has had worsening renal function with creatinine at 4.5 today. He relates [id number] pain to the left foot and takes fentanyl and fentanyl provides significant relief. He may require additional medication for breakthrough pain. He has been afebrile with stable vitals. Blood sugars running in the 181-260 over the last 24 hours. PHYSICAL EXAMINATION: Temperature 98.1, pulse 82, respirations 19, blood pressure 129/65. Large postoperative wound to the left lateral heel with exposed calcaneus and fibronecrotic tissue at the posterior and anterior margins. There is increased inflammation to the anterior margin of the wound. There is no healthy granulation. The area is very painful to the touch. The lateral calcaneus has some brown fibronecrotic tissue on it. No active bleeding noted. No fluctuance or crepitation to the adjacent skin margins. No pallor, cyanosis, or signs of acute vascular embarrassment. IMPRESSION: Osteomyelitis, left calcaneus. PLAN: I discussed with the patient, his , and son treatment options to include left BK amputation versus further surgery and salvage attempt. Based on the severity of the infection, tissue loss, and patient's medical condition, I feel a below-knee amputation would be in his best interest. I feel it would be very difficult to salvage this foot due to the size of the soft tissue defect, extent of tissue necrosis and bone involvement. Lower extremity salvage would require further surgical bone and tissue debridement with ongoing wound care, hyperbaric oxygen, IV antibiotics, wound vacuum, and improved glycemic control. I will consult Vascular Surgery to have them assess patient for possible BK amputation and discussed with the family. We will continue daily wound care. The wound was cleansed and dressed with Xeroform and covered with ABDs and Kerlix gauze. He is offloaded in a PRAFO boot. <ELECTRONICALLY SIGNED> By: Manjeet Ojeda DPM 02/20/19 1308 1629 [id number] Ojeda DPM /nt
--- NOTE | 2019-02-20 13:08 | OP ---
[facility] [address] [place] [address] OPERATIVE REPORT Name: TABITHA AVILES Room: [address] IN .R.#: [id number] Admission: 02/12/19 Attend Phys: Katia Gordon Discharge: Date of : 47 Report #: [id number] THIS REPORT FOR: //name// CC: Carola Montalvo DATE OF SERVICE: 02/13/2019 SURGEON: Manjeet Ojeda DPM PREOPERATIVE DIAGNOSIS: Deep tissue infection with possible osteomyelitis and ulceration, left inferior heel. POSTOPERATIVE DIAGNOSIS: Deep tissue infection with possible osteomyelitis and ulceration, left inferior heel. PROCEDURE: 1. Incision and drainage, left foot. 2. Plantar fasciectomy, left foot. 3. Ostectomy, left inferior calcaneus. ANESTHESIA: MAC. INJECTABLES: 30 mL of a 1:1 mixture of 0.5% Marcaine plain and 1% lidocaine plain. HEMOSTASIS: Left calf tourniquet at 275 mmHg. SPECIMENS: Bone, left calcaneus. CULTURES: 1. Soft tissue, left foot. 2. Bone, left calcaneus. ESTIMATED BLOOD LOSS: Roughly 10 mL. COMPLICATIONS: None. DESCRIPTION OF PROCEDURE: The patient was brought to the OR and placed on the table supine with induction of MAC anesthesia. A well-padded left calf tourniquet was placed. The extremity was prepped and draped aseptically. Prior to prep time I performed the left ankle block. The extremity was exsanguinated with inflation of the tourniquet. A #10 blade was used to create a longitudinal incision down the anterior calcaneus and overlying the ulceration. Two semielliptical converging incisions created around the ulceration, which was excised. The soft tissue envelope was dissected off the [place] [address] OPERATIVE REPORT Name: TABITHA AVILES Room: [address] IN [facility]#: [id number] Admission: 02/12/19 Attend Phys: Katia Gordon Discharge: Date of : 46 Report #: [id number] extensive soft tissue necrosis with black putrid tissue involving the entire central and lateral aspect of the inferior calcaneal soft tissue. I excised skin and subcutaneous tissue thoroughly with a #10 scalpel. I excised the plantar fascia and sent to represent a portion of soft tissue for aerobic and anaerobic tissue culture. Electrocautery was used for intraoperative hemostasis. The inferior lateral calcaneus had brown necrotic tissue on it with localized liquified necrosis along the lateral aspect of the calcaneal wall. I thoroughly debrided the calcaneus of this tissue and I used an osteotome to remove a small portion of the inferior lateral calcaneus to send for bone culture. A similar piece was also sent for bone pathology. After extensive debridement, the wound was flushed with 1 liter of sterile saline with bacitracin irrigant, it was dried and dressed with dry fluffs, ABDs, Kerlix and Sukhwinder bandage. The tourniquet was deflated and the patient left the OR with no pain or complications noted. <ELECTRONICALLY SIGNED> By: Manjeet Ojeda DPM 02/20/19 1308 1722 [id number] Ojeda DPM /nt
[2019-02-20 14:18] LABS: KAPPA FREE LIGHT CHAINS 128.7 mg/L (3.3-19.4); LAMBDA FREE LIGHT CHAINS 125.5 mg/L (5.7-26.3)
[2019-02-21 04:00] VITALS: BP 150/75
[2019-02-21 06:03] LABS: CALCIUM 7.6 mg/dL (8.5-10.1); CREATININE 4.3 mg/dL (0.6-1.3); POTASSIUM 3.8 mmol/L (3.5-5.1)
--- NOTE | 2019-02-21 07:02 | NUR ---
PT CARE ASSUMED AT 1930. SAT 88% IN RA, O2 CONNECTED AT 2L NC. PT IS CONFUSED. CALL LIGHT WITHIN REACH AND BED IN LOW POSITION. C/O PAIN, MEDICATIONGIVEN PER EMAR. HOURLY ROUNDING DONE FOR PT SAFETY.
[2019-02-21 07:30] VITALS: BP 164/83
[2019-02-21 09:07] LABS: GLOMERULR BASEM MEMBRN AB 6 units (0-20)
[2019-02-21 11:55] VITALS: BP 156/83
--- NOTE | 2019-02-21 15:10 | NUR ---
I have reviewed the documentation by YANG CARLTON from 02/20/19 to 02/20/19 and I concur with it. JASWANT ALVARES
[2019-02-21 15:45] VITALS: BP 102/54
[2019-02-21 15:48] VITALS: BP 126/60
--- NOTE | 2019-02-21 16:02 | EKG ---
[place] [address] ELECTROCARDIOGRAM REPORT Name: TABITHA AVILES Room: [place] [address] ADM IN .R.#: [id number] Admission: 02/12/19 Attend Phys: Katia Gordon Discharge: Date of : 46 Report #: [id number] THIS REPORT FOR: //name// [facility] Test Date: 2019-02-21 Test Time: 15:43:57 Pat Name: TABITHA AVILES Department: Room: [place] [address] Gender: M Environmental Services Assistant: : 1945 Requested By: Karina Lowe Order Number: [id number] Cesar MD: Paul Rodas Measurements Intervals [place] Rate: 75 P: 54 TN: 199 QRS: 10 QRSD: 98 T: 30 QT: 419 QTc: 468 Interpretive Statements Sinus rhythm Borderline low voltage, extremity leads Compared to ECG 01/16/2018 17:17:52 Myocardial infarct finding no longer present Electronically Signed On 02-21-2019 16:02:15 CDT by Paul Rodas [email or web address] <ELECTRONICALLY SIGNED> By: Paul Rodas MD, [facility] 02/21/19 1602 1543 1543 Paul Rodas MD, [facility] /EPI
[2019-02-21 20:00] VITALS: BP 142/82
[2019-02-21 21:10] LABS: ANA INTERPRETATION Negative (())
[2019-02-22] VITALS (7 sets, daily range): BP systolic 135–162; BP diastolic 64–75
--- NOTE | 2019-02-22 05:17 | NUR ---
ASSUMED CARE OF PT AFTER REPORT AT 1930. PT A&OX3-4. FORGETFUL AT TIMES. VSS. PHYSICAL ASSESSMENT COMPLETED AND CHARTED. PT ON RA. PT TRACING SR/1ST DEG ON TELE. PT DENIES ANY PAIN OR SOA. PT TURNED TO SIDES. INSTRUCTED PT TO BE ON NPO POST MIDNIGHT FOR PLANNED SURGERY TODAY. COMMUNICATES UNDERSTANDING. PT WITH PRIMO TO DEPENDENT DRAIN. PT ABLE TO SLEEP WELL ON BED. CALL LIGHT WITHIN REACH. CALL LIGHT WITHIN REACH.
[2019-02-22 08:38] LABS: CALCIUM 7.2 mg/dL (8.5-10.1); CREATININE 3.7 mg/dL (0.6-1.3); POTASSIUM 3.6 mmol/L (3.5-5.1)
--- NOTE | 2019-02-22 08:49 | CON ---
[address] [address] CONSULTATION Name: TABITHA AVILES Room: [address] IN .R.#: [id number] Admission: 02/12/19 Attend Phys: Katia Gordon Discharge: Date of : 46 Report #: [id number] THIS REPORT FOR: //name// CC: Carola Montalvo DATE OF SERVICE: 02/18/2019 NEPHROLOGY CONSULTATION CONSULTING PHYSICIAN: Dr. Montalvo REASON FOR NEPHROLOGY CONSULTATION: Acute kidney injury. REASON FOR ADMISSION: Left foot pain and redness. HISTORY OF PRESENT ILLNESS: This is a 73-year-old male who has past medical history of diabetes, not taking any medications currently, came in because his left foot was swelling and he was having pain. He was diagnosed with left calcaneal osteomyelitis and underwent a debridement and resection of the bone on 02/15/2019. His initial blood cultures were positive for Staphylococcus epidermidis. Left foot cultures grew Enterococcus faecalis and group B streptococcus and he was on antibiotics as per primary and still getting them. He was given vancomycin from 02/12 to 02/14 and his vancomycin level was 29 on 02/14. Also on admission, which is 02/12, he had a CT with IV contrast. The patient's creatinine increased from 1.3-2.9 on 02/15, 3.9 the next day, which was yesterday morning and then 4.5 yesterday afternoon and 4.8 today. He has been confused since admission, but now his confusion is improving. He has been on banana bag. He has not been eating or drinking much, but now he is starting to hold his food and is trying to eat some. On 02/14, he had more than 800 mL of postvoid residual and a Pringle catheter had to be placed and Flomax was started and Urology recommended to keep the Pringle for 1 week. He has been nonoliguric. On 02/12, he also got Toradol. His blood pressures were also low on 02/14. His A1c is around 13.8. The patient is a poor historian. REVIEW OF SYSTEMS: The patient is currently partially oriented to place, but is oriented to year and he is oriented to person, but otherwise he is a poor historian, so extensive 10-point review of systems could not be done. ALLERGIES: No known allergies. HOME MEDICATIONS: Basically include no home medications, he was not taking. No home medications currently. PAST MEDICAL AND SURGICAL HISTORY: [place] [address] CONSULTATION Name: TABITHA AVILES Room: [address] IN [facility]#: [id number] Admission: 02/12/19 Attend Phys: Katia Gordon Discharge: Date of : 46 Report #: [id number] FAMILY HISTORY: No history of any kidney disease in the family that the patient knows of. SOCIAL HISTORY: He does not smoke or take alcohol or use illicit drugs according to patient. PHYSICAL EXAMINATION: VITAL SIGNS: Blood pressure is 127/65, pulse rate is 73, temperature 36.4, respiratory rate is 16 and his pulse ox is 94% and he is on no oxygen. GENERAL: He is currently drowsy, but he wakes up and he is oriented partially to place. He is oriented to year and he is oriented to person. HEAD AND EYES: Normal conjunctivae and atraumatic, normocephalic. EARS, NOSE AND THROAT: Ears and nose are normal and his mucous membranes are extremely dry. NECK: There is no JVD. CHEST: Bilateral clear to auscultation anteriorly. No crackles or wheezing anteriorly. CARDIOVASCULAR: S1, S2 normal. No murmurs heard. ABDOMEN: Soft, nondistended, nontender. Bowel sounds are present. EXTREMITIES: There is no lower extremity edema except for left leg. The left foot is currently in a dressing and in a boot for support. NEUROLOGICAL FUNCTION: He is moving all his extremities. He is oriented partially to place and he is oriented to person and he is oriented partially to time. PSYCHIATRIC: Mood, not able to assess. LABORATORY DATA: His hemoglobin was 10.4. Creatinine was 4.8, BUN was 52, CO2 was 18, sodium was 133. Other labs were reviewed. CPK is 50. Hemoglobin A1c was 13. IMAGING: Renal ultrasound and other imaging studies were reviewed. ASSESSMENT: 1. This is acute kidney injury on top of possible chronic kidney disease with baseline creatinine exactly is not known, but creatinine was 1.2 on admission and now it is running around 4.8. This is in the setting of low blood pressure, use of vancomycin, IV contrast exposure, NSAID use and poor oral intake now. UA shows trace protein and 3-10 rbc's per high power field with 1-9 bacteria per high power field. He has a Pringle catheter. He was also retaining urine, but a Pringle catheter has been placed since 02/14 and his creatinine started bumping up the next day. Renal ultrasound shows no hydronephrosis. 2. Left calcaneal osteomyelitis status post debridement and fasciectomy and bone resection by Podiatry and is on antibiotics as per primary team. 3. Anion gap metabolic acidosis, which is because of renal insufficiency. 4. Hyponatremia, which is also because of renal insufficiency and to impaired [place] [address] CONSULTATION Name: TABITHA AVILES Room: [address] IN [place].#: [id number] Admission: 02/12/19 Attend Phys: Katia Gordon Discharge: Date of : 46 Report #: [id number] 5. Uncontrolled diabetes mellitus type 2. He was not taking any medications. Hemoglobin A1c is 13.8. 6. Positive blood cultures for Staphylococcus epidermidis and wound cultures from his left foot, Enterococcus faecalis and group B streptococcus; antibiotics as per primary team. 7. Urinary retention. He has a Pringle and Urology has been following and he has been nonoliguric, 700 mL urine output in the last 24 hours. 8. Altered mental status. His mental status is slowly improving. 9. Likely chronic kidney disease due to diabetes because his A1c is 13.8 and he is not taking any medications for diabetes. PLAN: 1. We will put him on normal saline at 100 mL an hour. 2. We will continue to follow his labs daily. He was also ordered some serological workup because of his hematuria. 3. Avoid nephrotoxic agents. Avoid NSAIDs. 4. Pringle catheter placement was checked and it is in place. 5. There is no acute need for dialysis. We will continue to follow closely and discussed with the patient and the patient's nurse and I did spend more than 35 minutes in the patient's critical care. This time was spent in chart review, placing orders and care coordination and counseling and we will continue to follow with you. <ELECTRONICALLY SIGNED> By: Kassie Boudreaux MD 02/22/19 0849 0846 [id number] Boudreaux MD /nt
--- NOTE | 2019-02-22 11:16 | NUR ---
[facility] [employer] INFORMED OF THE NEED TO F/U WITH THE PATIENT AND [facility] TO DISCUSS DISCHARGE PLANNING. D/C MANAGER GARDEN CONTACTED ELIZABETH WITH [facility] ADMISSIONS TO DISCUSS ABILITY TO ACCEPT THE PATIENT AT D/, AND LEFT A MESSAGE TO RETURN CALL. D/C MANAGER GARDEN SPOKE TO THE PATIENT AND HIS SPOUSE AND BOTH INFORM THAT THEY HAD BEEN INFORMED THAT ACUTE INPATIENT REHAB HERE IN THE HOSPITAL WOULD BE A GOOD OPTION FOR HIM, AND HE WOULD LIKE TO GO THERE AT D/. D/C MANAGER GARDEN INFORMED THE PHYSICIAN OF THIS AND SHE PLANS TO PLACE A REHAB CONSULT. D/C MANAGER GARDEN ALSO CONTACTED THE CONCRETING SUPERVISOR TO INFORM HER OF THIS WELL. CM WILL REMAIN AVAILABLE TO ASSIST AND FOLLOW NEEDED.
[2019-02-22 15:56] LABS: % SATURATION 20 % (20-39); IRON 17 ug/dL (50-175)
[2019-02-22 16:20] LABS: HEMATOCRIT 29.3 % (42.0-52.0); HEMOGLOBIN 9.9 gm/dL (14.0-18.0); MCHC 33.6 g/dL (28.0-37.0); MCV 86.2 fL (80.0-100.0); MPV 7.8 fl. (7.2-11.1); NUCLEATED RBCS 0 /100WBC; PLATELET COUNT* 257 thou/uL (150-400); RDW-CV 13.8 % (10.5-14.5); WBC 8.9 thou/uL (4.0-11.0)
[2019-02-22 16:26] LABS: ABSOLUTE EOSINOPHILS 0.1 thou/uL (0.0-0.7); ABSOLUTE LYMPHOCYTES 0.4 thou/uL (0.8-5.3); ABSOLUTE MONOCYTES 0.2 thou/uL (0.0-1.2); ABSOLUTE NEUTROPHILS 8.3 thou/uL (1.6-8.1); PLATELET ESTIMATE ADEQUATE; TOXIC GRANULATION 1+
[2019-02-22 16:27] LABS: BURR CELLS 1+; HYPOCHROMASIA 1+
[2019-02-23] VITALS (7 sets, daily range): BP systolic 112–162; BP diastolic 60–83
[2019-02-23 03:06] LABS: HEMOGLOBIN 9.5 g/dL (13.0-17.7)
[2019-02-23 04:59] LABS: HEMATOCRIT 30.4 % (42.0-52.0); HEMOGLOBIN 9.9 gm/dL (14.0-18.0); MCH 28.4 pg (26.0-34.0); MCHC 32.6 g/dL (28.0-37.0); MCV 86.9 fL (80.0-100.0); MPV 7.2 fl. (7.2-11.1); RBC 3.5 mil/uL (4.50-6.00); RDW-CV 14.1 % (10.5-14.5)
[2019-02-23 05:08] LABS: ALBUMIN 1.6 g/dL (3.4-5.0); CALCIUM 7.5 mg/dL (8.5-10.1); CREATININE 3.4 mg/dL (0.6-1.3); MAGNESIUM 1.9 mg/dL (1.8-2.4); POTASSIUM 3.6 mmol/L (3.5-5.1); TOTAL BILIRUBIN 0.3 mg/dL (<0.1-1.0); TOTAL PROTEIN 6.2 g/dL (6.4-8.2)
--- NOTE | 2019-02-23 06:24 | NUR ---
ASSUMED CARE OF PT AFTER REPORT AT 1930. PT A&OX4. VSS. PHYSICAL ASSESSMENT COMPLETED AND CHARTED. PT ON RA. PT TRACING SR/1ST DEG ON TELE. PT COMPLAINED OF NAUSEA- MEDS GIVEN PER SEP. INSTRUCTED ON NPO POST MIDNIGHT FOR LEFT BKA TODAY. COMMUNICATES UNDERSTANDING. CALL LIGHT WITHIN REACH.
[2019-02-23 15:06] LABS: IgA 370 mg/dL (61-437); IgG 1773 mg/dL (700-1600); IgM 71 mg/dL (15-143)
[2019-02-24] VITALS: BP 113/54
[2019-02-24 04:00] VITALS: BP 130/62
--- NOTE | 2019-02-24 05:03 | NUR ---
ASSUMED CARE OF PT AFTER REPORT AT 1930. PT A&OX3-4. VSS. PHYSICAL ASSESSMENT COMPLETED AND CHARTED. PT ON RA. PT TRACING SR 1ST DEG ON TELE. PT COMPLAINED OF LEFT LEG PAIN- MEDS GIVEN PER SEP. PT WITH TILLMAN TO DEPENDENT DRAIN. STARTED 24 HOUR URINE PROTEIN COLLECTION AT 8PM. PT ABLE TOSLEEP WELL ON BED. CALL LIGHT WITHIN REACH.
[2019-02-24 06:07] LABS: HEMATOCRIT 24.3 % (42.0-52.0); HEMOGLOBIN 8.1 gm/dL (14.0-18.0); MCH 28.6 pg (26.0-34.0); MCHC 33.1 g/dL (28.0-37.0); MCV 86.3 fL (80.0-100.0); MPV 7.4 fl. (7.2-11.1); RBC 2.82 mil/uL (4.50-6.00); WBC 6.8 thou/uL (4.0-11.0)
[2019-02-24 06:15] LABS: ALBUMIN 1.6 g/dL (3.4-5.0); CALCIUM 7.4 mg/dL (8.5-10.1); CREATININE 3.6 mg/dL (0.6-1.3); POTASSIUM 3.9 mmol/L (3.5-5.1); TOTAL BILIRUBIN 0.2 mg/dL (<0.1-1.0); TOTAL PROTEIN 5.8 g/dL (6.4-8.2)
[2019-02-24 08:00] VITALS: BP 113/51
[2019-02-24 12:00] VITALS: BP 113/61
--- NOTE | 2019-02-24 12:00 | CON ---
[address] [address] CONSULTATION Name: TABITHA AVILES Room: [address] IN .R.#: [id number] Admission: 02/12/19 Attend Phys: Katia Gordon Discharge: Date of : 47 Report #: [id number] THIS REPORT FOR: //name// CC: Carola Montalvo DATE OF SERVICE: 02/22/2019 REASON FOR CONSULTATION: Anemia, monoclonal gammopathy, IgG kappa. HISTORY OF PRESENT ILLNESS: A 73-year-old male who has been admitted to the hospital on 02/12 with left foot pain and redness. He had a past medical history of diabetes mellitus. The patient was diagnosed with left ____ osteomyelitis, underwent debridement and resection of the bone on 02/15. Blood cultures were positive for Staphylococcus epidermidis. The patient received intravenous IV contrast for CT scan. He developed renal failure, baseline between 1.3-2.9 to the level of 3.7. The patient also was found to have anemia; however, upon admission, his anemia has been at 12.9, previously in 2018 it was completely normal at 15.9. 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 REVIEW OF SYSTEMS: All systems were reviewed. It was negative except the above. PAST MEDICAL HISTORY: Diabetes mellitus, hypertension, osteomyelitis. MEDICATIONS: Per admission list. ALLERGIES: None known allergies. FAMILY HISTORY: No family history of malignancy. SOCIAL HISTORY: No smoking, alcohol abuse, no drug abuse. PHYSICAL EXAMINATION: VITAL SIGNS: Today, temperature 36.9, pulse 77, respirations 16, blood pressure is 137/73, SpO2 was 94% on room air. GENERAL: The patient was sitting in chair, was not in acute distress. LUNGS: Clear to auscultations bilaterally. HEART: Regular rate and rhythm. S1, S2 within normal limits. ABDOMEN: Soft, nontender, and nondistended. Bowel sounds positive. LABORATORY DATA: WBC 8.7, hemoglobin today is 9.4. Sodium is 137, creatinine 3.7. IMAGING: Chest x-ray showed bilateral atelectasis. A renal ultrasound showed normal renal ultrasound, no hydronephrosis. A CT scan of the [place], [place] [address] CONSULTATION Name: TABITHA AVILES Room: [address] IN [facility]#: [id number] Admission: 02/12/19 Attend Phys: Katia Gordon Discharge: Date of : 47 Report #: [id number] done with IV contrast showed small amount of fluids layers in the pelvis, large cystic structure in the left scrotum, very faint calculi seen in the left kidney. ASSESSMENT AND PLAN: A 73-year-old male who has been diabetic, received intravenous IV dye, was evaluated because of renal failure and anemia, which could be related to IV contrast and underlying diabetes; however, his immunofixation showed monoclonal IgG kappa. In these settings, I would like to rule out any possibilities of plasma cell dyscrasia. We will obtain serum electrophoresis, free light chain in addition to urine protein electrophoresis in 24-hour urine. We will obtain a whole body skeletal survey. I do not believe there is an urgency to obtain a bone marrow biopsy as an inpatient. We will arrange that as an outpatient. In terms of his anemia most likely due to renal failure or underlying plasma cell dyscrasia, we will obtain iron studies and peripheral blood smear. <ELECTRONICALLY SIGNED> By: Ari Araujo MD 02/24/19 1200 1437 [id number] Araujo MD /nt
[2019-02-24 16:00] VITALS: BP 102/66
--- NOTE | 2019-02-24 17:23 | NUR ---
ASSUMED PT CARE REPORT RECEIVED FROM NURSE. PT IS AOX4 SR ON FOUNTAIN ATTENDANT. ON RA. O2 SATURATION ABOVE 95% . PT L BKA IN IMMOBILIZER. PAIN LEVEL 3 SATED LATE THIS MORNING TYLENOL GIVEN.. DILAUDID GIVNE AT 1700 FOR MORE PAIN PICTURE OF UTTOCKS WOUND TAKEN AND PLACED IN CHART. Q2TURN PERFORMED. PT HAS NO OTHER COMPLAINT. IV ABX GIVEN. 24 HOUR URINE COLLECTION IN PROCESS/.PT HAS POOR OUTPUT FOR THE DAY. WILL CONTINUE TO MONITOR
[2019-02-25] VITALS (8 sets, daily range): BP systolic 109–176; BP diastolic 55–94
[2019-02-25 07:12] LABS: HEMATOCRIT 22.2 % (42.0-52.0); HEMOGLOBIN 7.4 gm/dL (14.0-18.0); MCH 29.1 pg (26.0-34.0); MCHC 33.4 g/dL (28.0-37.0); MCV 87.1 fL (80.0-100.0); MPV 7.3 fl. (7.2-11.1); RBC 2.55 mil/uL (4.50-6.00); WBC 5.2 thou/uL (4.0-11.0)
[2019-02-25 07:16] LABS: CALCIUM 7.2 mg/dL (8.5-10.1); CREATININE 3.2 mg/dL (0.6-1.3); MAGNESIUM 1.6 mg/dL (1.8-2.4); POTASSIUM 4.2 mmol/L (3.5-5.1)
--- NOTE | 2019-02-25 08:07 | NUR ---
PATIENT SLEPT PART OF THE NIGHT. IV FLUIDS AND ANTIBIOTICS WERE GIVEN ORDERED. PATIENT WAS GIVEN PAIN MEDICINE NEEDED. TILLMAN REMAINS TO DEPENDENT DRAIN. WOUND VAC AND IMMOBILIZER REMAIN IN PLACE. WILL CONTINUE TO MONITOR.
--- NOTE | 2019-02-25 09:00 | NUR ---
ASSUMED CARE AFTER REPORT. OX4, ABLE TO STATE NEEDS TO STAFF. EMERGENCY DISPATCHER IN PLACE, SR. O2 SATS 99% RA. USES 2L O2 PRN. VERY SENSITIVE TO CHANGES WHEN REPOSITIONING. REFUSES INCONTINENCE CARE. EDUCATION GIVEN R/T MAINTAINING SKIN INTEGRITY. PAIN MED GIVEN PER SEP. HOURLY ROUNDING FOR SAFETY AND PATIENT NEEDS.
--- NOTE | 2019-02-25 09:30 | NUR ---
PATIENT C/O NAUSEA. PRN MED GIVEN PER SEP.
--- NOTE | 2019-02-25 10:00 | NUR ---
PATIENT REFUSED INCONTINENCE CARE X2 ENCOUNTERS WITH STAFF. REINFORCED TEACHING ABOUT INCONTINENCE INCREASING RISK FOR INFECTION AND SKIN BREAKDOWN. PATIENT AGREES TO PLAN OF CARE AT THIS TIME. PATIENT REQUIRES EXTRA TIME FOR INCONTINENCE CARE D/T HESITENCY TO MOVE. ENCOURAGED PATIENT TO ACTIVELY MOVE EXTREMITIES WHILE PROVIDING CARE AND CHANGING LINENS.
--- NOTE | 2019-02-25 12:12 | NUR ---
CONTINUE TO FOLLOW, MET WITH PT AND SPOKE WITH OVER THE PHONE. PT/OT ORDERED HAD NOT BEEN SINCE SURGERY. UPDATED DR CUETO. SPOKE WITH [facility], THEY ARE OUT OF NETWORK. CALLED AND GAVE OPTIONS. CHOSE [facility]. CALLED AND FAXED REFERRAL TO [facility]. ALSO STATED PT HAS VA BENEFITS, ASKED NOEMI/DALI TO CONFIRM. EXPLAINED TO THAT INS WOULD HAVE TO AUTH REHAB AND IF NOT, THEN SNF. SHE ASKED HOW MUCH REHAB COST IF INS DIDN'T AUTH, EXPLAINED WOULD HAVE TO FIND OUT. WILL FOLLOW
--- NOTE | 2019-02-25 17:15 | NUR ---
PATIENT CONTINUES TO BE NAUSEOUS, DRY HEAVES WITH >100 MLS OF GREENISH/CLEAR LIQUID DURING 4 HOUR PERIOD. BECKY X2 PRN. CONTACTED DR. CUETO TO REQUEST ORDER FOR ADDITIONAL RELIEF OF N/V. ORDERS REC'D, RB, ENTERED PER CHART.
--- NOTE | 2019-02-25 17:47 | OP ---
[address] [address] OPERATIVE REPORT Name: TABITHA AVILES Room: [address] IN .R.#: [id number] Admission: 02/12/19 Attend Phys: Katia Gordon Discharge: Date of : 47 Report #: [id number] THIS REPORT FOR: //name// CC: CAROLA Sr DICTATED BY: Sienna Tadeo DO DATE OF SERVICE: 02/23/2019 PRIMARY CARE PHYSICIAN: Carola Aggarwal DO PREOPERATIVE DIAGNOSIS: Left foot gangrenous diabetic foot ulcer. POSTOPERATIVE DIAGNOSIS: Left foot gangrenous diabetic foot ulcer. PROCEDURE PERFORMED: Left ydkgt-nuy-micu amputation. PRIMARY SURGEON: Scott Thacker DO INKER: Sienna Tadeo DO, PGY2 ANESTHESIA: General and local. ESTIMATED BLOOD LOSS: 300 mL. FINDINGS: Normal lower extremity anatomy. COMPLICATIONS: None. INDICATIONS FOR PROCEDURE: The patient, a 73-year-old gentleman that presented to the Emergency Department with complaint of a left foot wound. He thought maybe he had stepped on something a week prior to presentation and had been treating his foot wound at home. He does have diabetes, but denies neuropathy. He had some nausea and chills, which prompted him to seek medical attention. X-rays were performed in the Emergency Department, they were concerning for presence of foreign bodies as well as some gas in the wound. He was taken to the operating room by Dr. Ojeda for wound debridement, fasciectomy, and ostectomy of left inferior calcaneus. He did have duplex ultrasound that showed nearly normal blood flow. We continued with local wound care and offloading. Despite continued local wound care, wound was not improving. At this point, it was recommended that the patient undergo oemzp-rbt-bodf amputation. A complete discussion of the procedure, the risks, benefits, possible complications was had with the patient and his . They both voiced complete understanding. Ultimately, the patient elected [place] [address] OPERATIVE REPORT Name: TABITHA AVILES Room: [address] IN .R.#: [id number] Admission: 02/12/19 Attend Phys: Katia Gordon Discharge: Date of : 47 Report #: [id number] DESCRIPTION OF PROCEDURE: Informed consent was obtained. The patient was then taken to the operating room and placed supine on the operating room table. Preoperative antibiotics were given. An SCD was placed on his right lower extremity. General anesthesia was induced without difficulty. The patient's left leg was then prepped and draped in the standard sterile fashion. A timeout was performed to ensure correct patient, procedure, and location of procedure. The intended level of amputation was marked approximately a handsbreadth below the tibial tuberosity. This was marked with a marking pen. Skin incision was mapped out to form a posterior flap and using a 10-blade scalpel, skin incision was made along our previously marked planned incision. Incision was carried down through the subcutaneous tissue using electrocautery, down to the level of the fascia. Our dissection continued down through the muscles of the anterior compartment until we reached the vascular structures within this compartment. These vascular structures were all ligated using 2-0 silk sutures and artery was ligated with a 0 silk suture. Continued our dissection through the muscle, suture ligating all vascular structures along the way until we visualized tibia. The tibia was mobilized using periosteal elevator. The fibula was also mobilized. The tibia was divided using oscillating bone saw. The fibula was divided using a handheld bone cutter. The amputation knife was then used to complete the amputation to the muscles of the lateral and posterior compartments. At this point, the remainder of any vascular structures were suture ligated to ensure hemostasis. Electrocautery was also used to ensure hemostasis. Tibial nerve was mobilized and injected with approximately 5 mL of 1% lidocaine, was clamped and cut. At this point, our surgical site was inspected for any further areas of bleeding. These were controlled with electrocautery and additional suture ligation using 2-0 silk suture. The anterior surface of the tibia was bevelled. After we ensured adequate hemostasis, our wound was then irrigated with antibiotic solution. We then prepared to close our flap, fascia at the posterior aspect of our flap was approximated to the anterior fascia using 0 Vicryl sutures in a fcdtip-mp-saccm fashion. Additional fascial sutures were placed using 2-0 Vicryl suture in a fulmpq-dy-qyskc fashion and the skin was further approximated using some subcutaneous 3-0 Vicryl U-stitches. Skin was then closed using zohreh. Surgical site was cleansed and dried. A 20 cm Prevena wound VAC was placed across our incision. We did ensure there was no tension along our incision and our flap. Prevena VAC was applied with good suction and stump was then wrapped with a 6-inch Sukhwinder wrap. The patient was allowed to awaken in the operating room and was transferred to the PACU in stable condition with plans to return to the floor later today. <ELECTRONICALLY SIGNED> By: Parish Austin MD 02/25/19 1747 1034 [id number] Thacker DO /les
[2019-02-26 04:28] VITALS: BP 124/70
--- NOTE | 2019-02-26 05:15 | NUR ---
PT IS ABLE TO COMMUNICATE HIS NEEDS TO STAFF EFFECTIVELY. CURRENT PAIN MEDICAITON REGIMEN HAS BEEN ADEQUATE FOR CONTROLLING HIS PAIN UP TO THIS TIME. RIGHT UPPER ARM PICC LINE PATENT AT THIS TIME. TILLMAN IS ALSO PATENT AT THIS TIME. PT/OT FOLLOWING WITH POSSIBLE DISCHARGE TO REHAB EVENTUALLY.
[2019-02-26 05:21] LABS: ALBUMIN 1.6 g/dL (3.4-5.0); CALCIUM 7.3 mg/dL (8.5-10.1); CREATININE 3.1 mg/dL (0.6-1.3); MAGNESIUM 1.7 mg/dL (1.8-2.4); PHOSPHORUS* 4.3 mg/dL (2.5-4.9); POTASSIUM 4.2 mmol/L (3.5-5.1)
[2019-02-26 08:00] VITALS: BP 148/74
[2019-02-26 09:04] LABS: ABSOLUTE BASOPHILS 0.1 thou/uL (0.0-0.2); ABSOLUTE EOSINOPHILS 0.1 thou/uL (0.0-0.7); ABSOLUTE LYMPHOCYTES 0.5 thou/uL (0.8-5.3); ABSOLUTE MONOCYTES 0.3 thou/uL (0.0-1.2); ABSOLUTE NEUTROPHILS 4.4 thou/uL (1.6-8.1); EOSINOPHILS 1.5 %; HEMATOCRIT 22.7 % (42.0-52.0); HEMOGLOBIN 7.7 gm/dL (14.0-18.0); LYMPHOCYTES 10.1 %; MCH 29.4 pg (26.0-34.0); MCHC 33.8 g/dL (28.0-37.0); MONOCYTES 6.4 %; MPV 7.7 fl. (7.2-11.1); NUCLEATED RBCS 0 /100WBC; PLATELET COUNT* 214 thou/uL (150-400); RBC 2.61 mil/uL (4.50-6.00); RDW-CV 14.2 % (10.5-14.5); WBC 5.5 thou/uL (4.0-11.0)
[2019-02-26 10:59] LABS: HEMATOCRIT 23.4 % (42.0-52.0); HEMOGLOBIN 7.7 gm/dL (14.0-18.0)
[2019-02-26 11:03] LABS: URINE BILIRUBIN NEGATIVE (Negative); URINE BLOOD 2+ (Negative); URINE CLARITY CLEAR; URINE COLOR YELLOW; URINE GLUCOSE-RANDOM NEGATIVE (Negative); URINE KETONES NEGATIVE (Negative); URINE LEUKOCYTES-REFLEX NEGATIVE (Negative); URINE NITRITE-REFLEX NEGATIVE (Negative); URINE PROTEIN TRACE (Negative); URINE SPECIFIC GRAVITY 1.025 (1.005-1.030); URINE UROBILINOGEN 0.2 E.U./dl (0.2-1.0)
[2019-02-26 11:04] LABS: BACTERIA-REFLEX 1-9 Few /HPF (None Seen); CASTS None Seen /LPF (None Seen); CRYSTALS None Seen /LPF (None Seen); MUCUS None Seen strn/LPF (None Seen); SQUAMOUS 0-3 Few /LPF (0-3); URINE WBC-REFLEX 0-5 Rare /HPF (0-5)
[2019-02-26 12:00] VITALS: BP 157/55
--- NOTE | 2019-02-26 12:03 | NUR ---
CONTINUE TO FOLLOW, SPOKE WITH ESTEFANI/DUSTY, AUTH FOR SNF IS PENDING.
--- NOTE | 2019-02-26 12:20 | NUR ---
ASSUMED PT CARE AT 0800, PT ON BEDREST, OT/PT ONBOARD. O2 SAT 90'S RA. TRACING SR ON TELE. PT COMPLAINS OF GENERALIZED PAIN AND NAUSEA. PT HAS L BKA NOTED. HAS WOUND VAC DRAINING WELL. R UPPER PICC INTACT. GENERALIZED EDEMA NOTED. FLUIDS D/C. PT FOR ACCU CHECK. PT HAS BM TODAY. VSS, AM ASESSMENT CHARTED, MEDS GIVEN PER MAR, Q2 TURN, HOURLY ROUNDING, CALL LIGHT WITHIN REACH. WILL CONTINUE TO MONITOR.
[2019-02-26 16:00] VITALS: BP 135/60
[2019-02-26 21:00] VITALS: BP 130/70
[2019-02-27] VITALS: BP 134/67
[2019-02-27 04:00] VITALS: BP 154/71
[2019-02-27 05:11] LABS: HEMOGLOBIN 7.9 gm/dL (14.0-18.0); MCH 28.8 pg (26.0-34.0); MCHC 33.1 g/dL (28.0-37.0); MPV 7.7 fl. (7.2-11.1); RBC 2.76 mil/uL (4.50-6.00); RDW-CV 14.2 % (10.5-14.5); WBC 4.6 thou/uL (4.0-11.0)
--- NOTE | 2019-02-27 05:22 | NUR ---
PT SLEPT MOST OF SHIFT. ASSESSMENT DOCUMENTED. MEDS GIVEN PER E-SEP. PICC PATENT. PT STATED HE DID NOT NEED ANY PAIN MEDS THIS SHIFT. NAUSEA MEDS GIVEN PER E-SEP. PT REPOSITIONED ALLOWED. LEG IMMOBILIZER AND WOUND VAC IN PLACE. DRESSING C/D/I. WILL CONTINUE WITH PLAN OF CARE.
[2019-02-27 05:41] LABS: CALCIUM 7.4 mg/dL (8.5-10.1); CREATININE 2.9 mg/dL (0.6-1.3)
[2019-02-27 06:06] LABS: BETA-2-MICROGLOBULIN 6.9 mg/L (0.6-2.4)
--- NOTE | 2019-02-27 07:01 | NUR ---
PT REFUSING AM MEDS. PT STILL STATING HE HAS NO PAIN. STATED SHE WOULD LET STAFF KNOW IF HE CHANGES HIS MIND.
[2019-02-27 08:00] VITALS: BP 176/89
[2019-02-27 12:00] VITALS: BP 156/72
--- NOTE | 2019-02-27 12:44 | NUR ---
CONTINUE TO AWAIT INS AUTH FOR SNF. SPOKE WITH OVER THE PHONE, UPDATED ON STATUS. SHE IS AGREEABLE TO DC ONCE AUTH OBTAINED FOR PT TO GO TO [facility]. UPDATE TO DR CUETO AND NURSE ALSO.
[2019-02-27 14:11] LABS: URINE PROTEIN 345 mg/24 hr (30-150); URINE PROTEIN (MG/DL) 35.2 mg/dL (Not Estab.)
[2019-02-27 15:07] LABS: GLOBULIN TOTAL 3.5 g/dL (2.2-3.9); KAPPA FREE LIGHT CHAINS 143.4 mg/L (3.3-19.4); M-SPIKE Not Observed g/dL (Not Observed)
[2019-02-27 16:00] VITALS: BP 154/77
--- NOTE | 2019-02-27 16:06 | PATH ---
[address] [address] PATHOLOGY RPT PROCEDURE Name: TABITHA AVILES Room: [address] IN M.R.#: [id number] Admission: 02/12/19 Date of : 47 Discharge: Report #: [id number] Path Case #: [id number] LCA Accession Number: [id number] . 01 Material submitted: . knee - LEFT BELOW KNEE AMPUTATION. Modifiers: left . 01 Clinical history: . Gangrene left foot . 02 Diagnosis: Left below knee amputation: - Benign left lower extremity with large nonspecific ulceration of lateral heel and extensive acute inflammation and necrosis of underlying soft tissues and osteomyelitis of underlying exposed bone. 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 . (CATALINA:edwin; 02/26/2019) CEZAR/02/27/2019 . 02 Electronically signed: . Damir Metcalf MD, Pathologist NPI- [id number] . 01 Gross description: . Received fresh in a red biohazard bag labeled "Tabitha Aviles, left below knee amputation" is a left below the knee amputation specimen measuring 36.0 cm heel to proximal skin soft tissue margin and 27.8 cm heel to big toe. Protruding from the proximal margin is the tibia (6.0 cm in length and 1.7 cm in diameter) and fibula (6.7 cm in length and 4.0 cm in diameter). The skin soft tissue margin and bone margins appear grossly viable. All 5 toes are present which display thickened yellow-bazan nails. The skin is pink-bazan with an ulceration on the left lateral heel exposing the underlying soft tissue and bone measuring 9.0 x 8.9 cm. The posterior tibial vasculature displays a partially stenotic lumen. Wheel Cutter sections are submitted as follows: . A1: Skin soft tissue margin A2: Left lateral heel ulcer A3: Exposed bone left lateral heel after decalcification A4: Tibial artery vasculature (dorsalis pedis inked red) (SDY; 02/25/2019) SYU/SYU . 02 Pathologist provided ICD-10: I70.249, M86.8X6 . 02 [place] [address] PATHOLOGY RPT PROCEDURE Name: TABITHA AVILES Room: [place] [address] ADM IN [facility].#: [id number] Admission: 02/12/19 Date of : 47 Discharge: Report #: [id number] Path Case #: [id number] Specimen Comment: A courtesy copy of this report has been sent to Specimen Comment: [phone], , . Specimen Comment: Report sent to Performed at: [address], [place], [place] [id number] MD Deandre Patterson MD Phone: [phone] Performed at: 02 [facility] [address], [place], [place] [id number] MD Damir Metcalf MD Phone: [phone]
[2019-02-28] VITALS: BP 134/72
[2019-02-28 04:00] VITALS: BP 165/83
--- NOTE | 2019-02-28 06:22 | NUR ---
PATIENT SLEPT MOST OF THE NIGHT. PICC LINE REMAINS SALINE LOCKED. PATIENT WAS COMPLAINING OF NAUSEA AT BEGINNING OF SHIFT ZOFRAN WAS GIVEN ONCE. TILLMAN REMAINS TO DEPENDENT DRAIN. PATIENT DID HAVE A MODERATE SOFT STOOL THIS SHIFT. WILL CONTINUE TO MONITOR.
[2019-02-28 07:30] VITALS: BP 145/88
--- NOTE | 2019-02-28 11:17 | NUR ---
WOUND CARE NOTE: REASSESSMENT OF COCCYX/L. BUTTOCK PRESSURE ULCER. DEEP TISSUE INJURY HAS PROGRESSED TO A HEALING STAGE 3 PRESSURE ULCER. NOW ONLY ONE ULCERATION MEASURING 0.9X0.5X0.1. MOIST, PINK WOUND BED. DRAINING SCANT AMOUNTS OF SEROSANGUINEOUS DRAINAGE. ONELIA-WOUND WITH NEW PINK EPITHELIUM. CLEANSED, APPLIED SKIN PREP TO ONELIA-WOUND. APPLIED AQUACEL AG TO WOUND BED AND COVERED WITH BORDERED FOAM. PATIENT TOLERATED DRESSING CHANGE WELL. REEDUCATED PATIENT AND FAMILY MEMBER TO CONTINUE TO OFFLOAD THE AREA, COMMUNICATED UNDERSTANDING RECOMMEND TURN Q2 HOURS, KEEP OFF WOUND Q3 DAY DRESSING CHANGES ENCOURAGE GOOD NUTRTION/HYDRATION FOR WOUND HEALING
[2019-02-28 11:30] VITALS: BP 171/88
[2019-02-28 12:19] LABS: HEMOGLOBIN 9.2 gm/dL (14.0-18.0); MCH 29.4 pg (26.0-34.0); MCHC 32.8 g/dL (28.0-37.0); MCV 89.7 fL (80.0-100.0); MPV 7.2 fl. (7.2-11.1); NUCLEATED RBCS 0 /100WBC; PLATELET COUNT* 217 thou/uL (150-400); RBC 3.12 mil/uL (4.50-6.00); WBC 6.7 thou/uL (4.0-11.0)
[2019-02-28 12:37] LABS: ALBUMIN 1.9 g/dL (3.4-5.0); CALCIUM 7.4 mg/dL (8.5-10.1); CREATININE 2.5 mg/dL (0.6-1.3); POTASSIUM 4.7 mmol/L (3.5-5.1); TOTAL BILIRUBIN 0.4 mg/dL (<0.1-1.0); TOTAL PROTEIN 6.5 g/dL (6.4-8.2)
[2019-02-28 12:43] LABS: ABSOLUTE EOSINOPHILS 0.1 thou/uL (0.0-0.7); ABSOLUTE LYMPHOCYTES 0.4 thou/uL (0.8-5.3); ABSOLUTE NEUTROPHILS 6.2 thou/uL (1.6-8.1); PLATELET ESTIMATE ADEQUATE
[2019-02-28 16:00] VITALS: BP 176/92
[2019-02-28 19:30] VITALS: BP 171/87
[2019-03-01] VITALS: BP 166/81
[2019-03-01 04:00] VITALS: BP 193/96
--- NOTE | 2019-03-01 05:07 | NUR ---
ASSUMED CARE OF PT AT 1900. PT IS ALERT AND ORIENTED. VSS. PERRLA. NO COMPLAINTS OF PAIN. PT REPORTS ONGOING NAUSEA. PT IS IN SINUS RYTHM ON THE TELEMETRY. PT IS RESTING COMFORTABLY IN BED. RESPIRATIONS ARE EVEN AND NONLABORED. WILL CONTINUE TO MONITOR PT.
[2019-03-01 05:24] LABS: HEMATOCRIT 28.5 % (42.0-52.0); HEMOGLOBIN 9.2 gm/dL (14.0-18.0); MCH 29.1 pg (26.0-34.0); MCHC 32.2 g/dL (28.0-37.0); MCV 90.2 fL (80.0-100.0); MPV 7.8 fl. (7.2-11.1); RBC 3.17 mil/uL (4.50-6.00); RDW-CV 14.3 % (10.5-14.5); WBC 7.9 thou/uL (4.0-11.0)
[2019-03-01 05:32] LABS: CREATININE 2.5 mg/dL (0.6-1.3); MAGNESIUM 1.8 mg/dL (1.8-2.4); POTASSIUM 5.2 mmol/L (3.5-5.1)
[2019-03-01 07:30] VITALS: BP 181/92
--- NOTE | 2019-03-01 07:37 | CON ---
[facility] [address] [place] [address] CONSULTATION Name: TABIHTA AVILES Room: [address] IN .R.#: [id number] Admission: 02/12/19 Attend Phys: Katia Gordon Discharge: Date of : 47 Report #: [id number] THIS REPORT FOR: //name// CC: Craola Montalvo DATE OF SERVICE: 02/20/2019 CHIEF COMPLAINT: Status post debridement, left calcaneus with osteomyelitis. The patient has severe and soft tissue defect with osteomyelitis of the calcaneus, necessitating below-knee amputation. The patient has discussed this option with his as well as Dr. Montalvo. He has been followed by Vascular Surgery and he is willing to perform the surgery. The patient is more lucid today, pain somewhat lessened. He has improved appetite. He is on parenteral Flagyl and ceftriaxone. Surgical cultures grew Bacteroides, group B streptococcus and Enterococcus faecalis. LABORATORY DATA: WBC 8.6, RBC 3.23, hemoglobin 9.4, hematocrit 27.7, and platelets 215. BUN 49, creatinine 4.7. IMPRESSION: Osteomyelitis, polymicrobial deep tissue infection, left heel. PLAN: The patient requires below-knee amputation as this extremity is unsalvageable. The limb will not be functional and would require subtotal calcanectomy and extensive wound care. I discussed with the patient and he is agreeable with below-knee amputation. I discussed with Vascular nurse as well. I will speak with his about the status of his wound. <ELECTRONICALLY SIGNED> By: Manjeet Ojeda DPM 03/01/19 0737 1255 [id number] Ojeda DPM /nt
[2019-03-01 09:30] VITALS: BP 137/70
--- NOTE | 2019-03-01 14:19 | NUR ---
I have reviewed the documentation by YANG CARLTON from TODAY to 03/01/19 and I concur with it. JASWANT ALVARES
[2019-03-01 16:00] VITALS: BP 147/83
[2019-03-01 21:30] VITALS: BP 148/78
[2019-03-02] VITALS (7 sets, daily range): BP systolic 121–167; BP diastolic 64–91
[2019-03-02 04:35] LABS: HEMATOCRIT 25.9 % (42.0-52.0); HEMOGLOBIN 8.5 gm/dL (14.0-18.0); MCH 29.3 pg (26.0-34.0); MCHC 32.7 g/dL (28.0-37.0); MCV 89.6 fL (80.0-100.0); MPV 7.5 fl. (7.2-11.1); RBC 2.89 mil/uL (4.50-6.00); RDW-CV 14.5 % (10.5-14.5)
--- NOTE | 2019-03-02 04:43 | NUR ---
ASSUMED CARE OF PT AT 1900. PT IS ALERT AND ORIENTED. VSS. NO COMPLAINTS OF NAUSEA. PT WAS 86 PERCENT ON ROOM AIR. PT WAS PLACED ON 4 LITERS TO GET SPO2 ABOVE 90%. PT IS IN SINUS RYTHM ON THE TELEMETRY. PT IS RESTING COMFORTABLY IN BED. RESPIRATIONS ARE EVEN AND NONLABORED. WILL CONTINUE TO MONITOR PT.
[2019-03-02 05:04] LABS: CREATININE 2.5 mg/dL (0.6-1.3); MAGNESIUM 1.8 mg/dL (1.8-2.4); POTASSIUM 4.8 mmol/L (3.5-5.1)
--- NOTE | 2019-03-02 14:27 | NUR ---
PT TRANSFERRED TO ROOM 103. REPORT GIVEN TO SONI EASTMAN. PT STILL HAVING N/V AT THE TIME OF TRANSFER AND ANOTHER DOSE OF ANTI-EMETIC WAS PROVIDED. ALL AM MEDICATION HELD DUE TO PT N/V AND REFUSAL TO TAKE MEDICATION. PT DID NOT TAKE AM DOSE OF PROTONIX ON ICE MAKER MEDICATION WAS FOUND IN ROOM AND PT REFUSED TO TAKE IT. PT STILL NOT BEEN OUT OF BED DUE TO NOT HAVING ROOM TO TAKE LEENA IN THAT SPECIFIC ROOM. WILL SIGN OFF AT THIS TIME.
--- NOTE | 2019-03-02 17:09 | NUR ---
ASSUMED CARE OF PATIENT AT 1420. PATIENT IS NAUSEATED, NO VOMITING. PATIENT HAS REFUSED MEALS AND MEDICATION DUE TO NAUSEA. PHENERGAN GIVEN, ZOFRAN SCHEDULED. PATIENT WORKED WITH PHYSICAL THERAPY UPON ARRIVAL TO UNIT BUT WAS UNABLE TO DO MUCH THERAPY DUE TO THE NAUSEA. PATIENT GIVEN AND ENCOURAGED TO EAT/DRINK ICE CHIPS AND CLEAR LIQUIDS TO HELP WITH HYDRATION. PATIENT HAS VERY POOR INTAKE. PATIENT DENIES ANY PAIN. PATIENT DENIES ANY NEEDS AT THIS TIME. CALL LIGHT WITHIN REACH.
--- NOTE | 2019-03-02 21:25 | NUR ---
LAST ROUNDS BY DAVIS AT 1930. STATES TO RN SHE WANTS PATIENT TRANSFERED. THIS INFORMATION WAS PROVIDED TO THIS STAFF VETERINARIAN. 1944 BRIEF ASSESSMENT WITH VITAL SIGNS AND FURTHER DISCUSSION WITH . SHE AGAIN REQUESTS TRANSFER AND NAMES RECEIVING HOSPITAL. SHE STATES SHE IS CONCERNED WITH PATIENT RESPONSE TO ALL TREATMENT AND CONTINUED DIFFICULTY WITH NAUSEA, NO INTAKE FOR 1 WEEK EXCEPT SIPS WATER/ICE AND LABORED BREATHING WITH OVERALL DECLINE RATHER THAN IMPROVEMENT IN CONDITIONS. ENDODONTIST AND PHYSICIAN NOTIFIED. NEW ORDERS FOR KUB AND TELE TRANSFER. FURTHER OUT OF HOSPITAL TRANSFER PROCESSES INITIATED. REPORT TO ARI SHAFER ON 2W GIVEN WITH PATIENT TRANSFERED WITH ALL BELONGNINS AT 2124.
[2019-03-03 04:00] VITALS: BP 150/87
--- NOTE | 2019-03-03 05:37 | NUR ---
RECEIVED REPORT FROM MJ SHAFER. PT TRANSFERRED TO 213. PT A&OX4. WEAK. VSS. PHYSICAL ASSESSMENT COMPLETED AND CHARTED. PT ON O2 AT 4L NC. PT TRACING SR ON TELE. PT WITH TILLMAN TO DEPENDENT DRAIN. RIGHT UPPER ARM PICC LINE PATENT & INTACT. MAINTAINED IMMOBILIZER TO LEFT BKA. PT COMPLAINED OF LEFT LEG PAIN BUT REFUSED MEDICATION. PT ALSO REFUSED TURNS EVEN AFTER EDUCATION. CALL LIGHT WITHIN REACH.
--- NOTE | 2019-03-03 08:30 | NUR ---
ASSUMED CARE AFTER REPORT APPROX 0740. ORIENTED TO SELF AND SITUATION. C/0 NAUSEA, MEDS PER SEP. SOUND EFFECTS MANAGER IN PLACE, SR. O2 SATS >92% 4L. TILLMAN TO DEPENDENT DRAINAGE. IMMOBILIZER TO L LE. SPOUSE AT BEDSIDE. CALL LIGHT IN REACH. HOURLY ROUNDING FOR SAFETY AND PATIENT NEEDS.
[2019-03-03 08:45] VITALS: BP 144/87
[2019-03-03 13:20] VITALS: BP 116/70
--- NOTE | 2019-03-03 13:30 | NUR ---
PATIENT CALLED OUT ABOUT 1300 STATING "I NEED TO GET UP!" PATIENT REMOVED OXYGEN TUBING AND REFUSED TO ALLOW STAFF TO REAPPLY OXYGEN. PATIENT REACHING FORWARD WITH HIS HANDS, GRASPING SIDE RAILS. PATIENT ASSISTED TO EDGE OF BED WITH ASSIST OF TWO AND GAIT BELT. PATIENT BECAME WEAK AND RETURNED TO SEMI-FOWLERS POSITION. AT THAT TIME GAZE BECAME FIXED, PATIENT WAS UNRESPONSIVE. RAPID RESPONSE CALLED. PATIENT BECAME RESPONSIVE, OPENING EYES TO VERBAL CUE. ANSWERING YES/NO QUESTIONS. ASSESSMENT REVEALED COARSE LUNG SOUNDS, REGULAR HEART RATE, VS WNL WITH EXCEPTION OF OXYGEN, <92%. OXYGEN REAPPLIED, SATS INCREASED TO 96%. EKG WNL. BS 161. DR GONZALEZ TO BEDSIDE FOR ASSESSMENT, ORDERS PLACED PER EMR. PATIENT TRANSPORTED DOWN TO CT VIA BED, O2 AND TRANSPORTER.
[2019-03-03 13:47] LABS: BE -2.5 mmol/L (-2 to +3); PCO2 43.9 mmHg (35.0-45.0); PO2 88.9 mmHg (75.0-100.0)
[2019-03-03 14:04] LABS: ALBUMIN 2.5 g/dL (3.4-5.0); CALCIUM 8.2 mg/dL (8.5-10.1); CREATININE 2.2 mg/dL (0.6-1.3); MAGNESIUM 1.8 mg/dL (1.8-2.4); POTASSIUM 4.7 mmol/L (3.5-5.1); TOTAL BILIRUBIN 0.6 mg/dL (<0.1-1.0); TOTAL PROTEIN 6.6 g/dL (6.4-8.2)
[2019-03-03 17:55] LABS: URINE BILIRUBIN NEGATIVE (Negative); URINE BLOOD 3+ (Negative); URINE CLARITY CLEAR; URINE COLOR YELLOW; URINE GLUCOSE-RANDOM NEGATIVE (Negative); URINE KETONES NEGATIVE (Negative); URINE LEUKOCYTES-REFLEX 1+ (Negative); URINE NITRITE-REFLEX NEGATIVE (Negative); URINE PROTEIN NEGATIVE (Negative); URINE SPECIFIC GRAVITY 1.015 (1.005-1.030); URINE UROBILINOGEN 0.2 E.U./dl (0.2-1.0)
[2019-03-03 18:18] LABS: SQUAMOUS 0-3 Few /LPF (0-3); URINE WBC-REFLEX 0-5 Rare /HPF (0-5)
[2019-03-03 18:19] LABS: MUCUS 0-3 Light strn/LPF (None Seen)
[2019-03-03 18:20] LABS: FINE GRANULAR CASTS 0-3 Few /LPF (None Seen); HYALINE CASTS 0-3 Few /LPF (None Seen)
[2019-03-03 18:25] LABS: URIC ACID CRYSTALS 4-10 Moderate /LPF (None Seen)
[2019-03-03 18:28] VITALS: BP 154/95
[2019-03-03 19:55] VITALS: BP 153/96
[2019-03-04 00:30] VITALS: BP 154/89
[2019-03-04 04:30] VITALS: BP 160/88
[2019-03-04 05:26] LABS: HEMATOCRIT 25.9 % (42.0-52.0); HEMOGLOBIN 8.5 gm/dL (14.0-18.0); MCH 29.5 pg (26.0-34.0); MCV 89.6 fL (80.0-100.0); MPV 7.7 fl. (7.2-11.1); RBC 2.89 mil/uL (4.50-6.00); RDW-CV 14.2 % (10.5-14.5); WBC 7.3 thou/uL (4.0-11.0)
[2019-03-04 05:41] LABS: CALCIUM 8.2 mg/dL (8.5-10.1); MAGNESIUM 1.7 mg/dL (1.8-2.4); POTASSIUM 4.1 mmol/L (3.5-5.1)
--- NOTE | 2019-03-04 06:50 | NUR ---
PATIENT ON AND OFF THE BIPAP THROUGHOUT THE NIGHT. HE TOLERATES ONLY FOR SHORT PERIODS OF TIME BEFORE REMOVING THE MASK. ON 6L O2 NC WHEN OFF THE BIPAP. CONT PULSE OXIMETRY IN PLACE, PATIENT HAS EPISODES OF DESATURATION ON NC IN THE 70'S. BIPAP PLACED BACK ON DURING THESE EPISODES WITH GOOD REBOUND IN O2 SATURATIONS. HIS BREATHING REMAINS LABORED AND WITH WHEEZY LUNG OBRIEN. PATIENT TO HAVE THORACENTESIS THIS AM. NPO POST MIDNIGHT. CALL LIGHT WITHIN REACH.
[2019-03-04 07:46] LABS: APTT 25.4 Seconds (25.0-31.3); INR 1.1; PROTIME 11.4 Seconds (9.20-11.50)
[2019-03-04 08:00] VITALS: BP 147/91
[2019-03-04 11:59] LABS: BF RBC <1000 /mm3; TOTAL CELL COUNT 42 /mm3
[2019-03-04 12:00] LABS: TOTAL VOLUME 2400 ml
[2019-03-04 12:01] LABS: CLARITY SLIGHTLY HAZY
[2019-03-04 12:14] VITALS: BP 147/75
--- NOTE | 2019-03-04 12:20 | NUR ---
Pt to transfer to [facility] per family request. CM awaiting room assignment, Pt will admit under the care of Dr Natali Pena to the medical ICU. Chart copied. CM awaiting nurse report number. Pt will transfer via ambulance, CM to arrange once bed assignment obtained. EMTALA form completed, copy to be sent with Pt. Radiology reports have been uploaded to the cloud.
[2019-03-04 12:22] LABS: BF LYMPHOCYTES 88 %; BF POLYS 12 %; BF TISSUE 33 /100 WBC
[2019-03-04 12:26] LABS: SOURCE THORACENTESIS
--- NOTE | 2019-03-04 15:29 | 2DMMODE ---
[place] [address] 2 D/M-MODE ECHOCARDIOGRAM Name: TABITHA AVILES Room: [address]#: [id number] Admission: 02/12/19 Attend Phys: Dillan Montalvo Discharge: 03/04/19 Date of : 47 Date of Service: 03/04/19 1318 Report #: [id number] THIS REPORT FOR: //name// APPROVED REPORT Study performed: 03/04/2019 10:41:34 EXAM: Comprehensive 2D, Doppler, and color-flow Echocardiogram Patient Location: In-Patient Room #: [facility] Status: routine BSA: 2.22 HR: 100 bpm BP: 160/88 mmHg Rhythm: NSR Other Information Study Quality: Fair Indications Dyspnea Pleural Effusion 2D Dimensions IVSd: 11.73 (7-11mm) LVOT Diam: 22.10 (18-24mm) LVDd: 48.09 mm PWd: 9.52 (7-11mm) Ascending Ao: 35.48 (22-36mm) LVDs: 36.75 (25-40mm) Aortic Root: 35.13 mm Volumes Left Atrial Volume (Systole) LA ESV Index: 27.20 mL/m2 Aortic Valve AoV Peak Edgar.: 0.82 m/s AO Peak Gr.: 2.68 mmHg LVOT Max P.71 mmHg AO Mean Gr.: 1.59 mmHg LVOT Mean P.30 mmHg LVOT Max V: 0.82 m/s AO V2 VTI: 13.03 cm LVOT Mean V: 0.52 m/s GEORGES (VTI): 4.64 cm2 LVOT V1 VTI: 15.76 cm Mitral Valve E/A Ratio: 1.35 MV Decel. Time: 143.31 [place] [address] 2 D/M-MODE ECHOCARDIOGRAM Name: TABITHA AVILES Room: [address]#: [id number] Admission: 02/12/19 Attend Phys: Dillan Montalvo Discharge: 03/04/19 Date of : 47 Date of Service: 03/04/19 1318 Report #: [id number] MV E Max Edgar.: 0.89 m/s MV PHT: 41.56 ms MVA (PHT): 5.29 cm2 TDI E/Lateral E': 8.09 E/Medial E': 8.90 Medial E' Edgar.: 0.10 m/s Lateral E' Edgar.: 0.11 m/s Tricuspid Valve RAP Estimate: 10.00 mmHg TR Peak Gr.: 40.08 mmHg RVSP: 50.00 mmHg PA Pressure: 50.00 mmHg Left Ventricle The left ventricle is normal size. Regional wall motion abnormalities are noted. akinesis of base of inferior wall and apex There is normal left ventricular wall thickness. Left ventricular systolic function is moderately decreased. LVEF is 30-35%. The left ventricular diastolic function is normal. Right Ventricle The right ventricle is normal size. The right ventricular systolic function is normal. Atria The left atrium size is normal. The right atrium size is normal. Aortic Valve Mild aortic valve sclerosis. No aortic regurgitation is present. There is no aortic valvular stenosis. Mitral Valve The mitral valve is normal in structure. Mild mitral regurgitation. No evidence of mitral valve stenosis. Tricuspid Valve The tricuspid valve is normal in structure. Mild tricuspid regurgitation. estimated pa pressure 45 mm Hg Pulmonic Valve Pulmonic valve is not well visualized. There is no pulmonic valvular regurgitation. [place] [address] 2 D/M-MODE ECHOCARDIOGRAM Name: JOSELINTABITHA PETERSON Room: [address]#: [id number] Admission: 02/12/19 Attend Phys: Dillan Montalvo Discharge: 03/04/19 Date of : 47 Date of Service: 03/04/19 1318 Report #: [id number] The aortic root is normal in size. IVC is normal in size and collapses >50% with inspiration. Pericardium There is no pericardial effusion. Large left pleural effusion. <Conclusion> Regional wall motion abnormalities are noted. akinesis of base of inferior wall and apex LVEF is 30-35%. Mild aortic valve sclerosis. Mild mitral regurgitation. Mild tricuspid regurgitation. estimated pa pressure 45 mm Hg <ELECTRONICALLY SIGNED> By: Javier Coelho MD, [facility] 03/04/19 1318 Javier Coelho MD, FAC /INF
--- NOTE | 2019-03-04 17:00 | EKG ---
[place] [address] ELECTROCARDIOGRAM REPORT Name: TABITHA AVILES Room: [address] IN M.R.#: [id number] Admission: 02/12/19 Attend Phys: Katia Gordon Discharge: 03/04/19 Date of : 47 Report #: [id number] THIS REPORT FOR: //name// [facility] Test Date: 2019-03-03 Test Time: 13:23:38 Pat Name: TABITHA AVILES Department: Room: [address] Gender: M Administrative Court Justice: MAZIN : 1945 Requested By: Adalberto Bro Order Number: [id number] Reading MD: Javier Coelho Measurements Intervals [place] Rate: 108 P: 67 NM: 172 QRS: 44 QRSD: 88 T: 139 QT: 343 QTc: 460 Interpretive Statements Sinus tachycardia Borderline low voltage, extremity leads Nonspecific T abnormalities, lateral leads Baseline wander in lead(s) V4,V5 Compared to ECG 02/21/2019 15:43:57 Sinus rhythm no longer present Electronically Signed On 03-04-2019 17:00:30 CDT by Javier Coelho [email or web address] <ELECTRONICALLY SIGNED> By: Javier Coelho MD, [facility] 03/04/19 1700 1323 1323 Javier Coelho MD, [facility] /EPI
--- NOTE | 2019-03-04 18:06 | PATH ---
[address] [address] PATHOLOGY RPT PROCEDURE Name: TABITHA AVILES Room: [address] IN .R.#: [id number] Admission: 02/12/19 Date of : 47 Discharge: 03/04/19 Report #: [id number] Path Case #: [id number] [facility] Accession Number: [id number] . 01 Material submitted: . stomach - GASTRIC BIOPSY FOR H-PYLORI . 01 Clinical history: . None provided . 02 Diagnosis: Gastric biopsy: - Mild nonspecific chronic gastritis, negative for Helicobacter pylori organisms and dysplasia. (CATALINA:lisha; 03/04/2019) . . Special stain: H. pylori immuno QMS/03/04/2019 . 02 Electronically signed: . Damir Metcalf MD, Pathologist NPI- [id number] . 01 Gross description: . Received in formalin labeled "Tabitha Aviles, gastric biopsy for H. pylori," is a single segment of bazan soft tissue measuring 0.8 cm in maximum dimension. The specimen is entirely submitted in cassette A1. (TSD; 03/01/2019) TOB/TOB . 02 Pathologist provided ICD-10: K29.50 . 02 CPT . 388938, [id number] Specimen Comment: A courtesy copy of this report has been sent to Specimen Comment: [phone], , . Specimen Comment: Report sent to ,DR CUETO / DR PAPPAS Performed at: [address], [place] [id number] MD Deandre Patterson MD Phone: [phone] Performed at: 02 [facility] [address], [place], [place] [id number] MD Damir Metcalf MD Phone: [phone]
[2019-03-05 16:06] LABS: BODY FLUID AMYLASE 6 U/L (()); BODY FLUID LDH 47 IU/L (())
[2019-03-05 21:06] LABS: BODY FLUID PROTEIN 1.2 g/dL (())
[2019-03-06 14:09] LABS: BODY FLUID PH 7.7 (Not Estab.)
[2019-03-07 08:52] LABS: SOURCE THORACENTESIS
[2019-03-07 08:53] LABS: SOURCE THORACENTESIS
--- NOTE | 2019-03-07 12:06 | PATH ---
[address] [address] PATHOLOGY RPT PROCEDURE Name: TABITHA AVIELS Room: [address]#: [id number] Admission: 02/12/19 Date of : 47 Discharge: 03/04/19 Report #: [id number] Path Case #: [id number] Note [facility] Accession Number: [id number] TESTS RESULT FLAG UNITS REF RANGE LAB Clinician Provided Cytology Information No. of containers..01 Other (Miscellaneous) Source: RT PLEURAL FLUID DIAGNOSIS: RT PLEURAL FLUID NEGATIVE FOR MALIGNANT CELLS. MESOTHELIAL CELLS AND FEW INFLAMMATORY CELLS. THIS INTERPRETATION INCLUDES EVALUATION OF A CELL BLOCK. Signed out by: 02 Damir Metcalf MD, Pathologist NPI- [id number] Performed by: 01 Regine Saavedra, Quality Assurance Coach ([facility]) Gross description: 01 35ML, YELLOW, CLOUDY /LCS FLAG LEGEND: L-Low Normal,H-High Normal,LL-Alert Low,HH-Alert High <-Panic Low,>-Panic High,A-Abnormal,AA-Critical Abnormal Performed at: [address] [place] [address] Deandre Patterson MD, [address] [place] [address] [address] [place] [address] Damir Metcalf MD, Performed at: [address], [place], [place] [id number] MD Deandre Patterson MD Phone: [phone]
== END 2019-03-04 15:00 | disposition short-term general hospital (02) | DRG 853 ==
LOC: M.ERS 11:46 → M.TBA-ER 13:23 → M.2W 13:23 → M.ORTHSURG 03-02 14:13 → M.2W 03-02 21:25
PROVIDERS: Internal Medicine; Internal Medicine Infectious Disease; Internal Medicine Nephrology; Nurse Practitioner Family; Specialist; ADMIT Internal Medicine
PROC: 0QBM0ZZ Excision of Left Tarsal, Open Approach (ICD-10-PCS; principal; 2019-02-13)
PROC: 02HV33Z Insertion of Infusion Device into Superior Vena Cava, Percutaneous Approach (ICD-10-PCS; 2019-02-15)
PROC: 0Y6J0Z2 Detachment at Left Lower Leg, Mid, Open Approach (ICD-10-PCS; 2019-02-23)
PROC: 0DB68ZX Excision of Stomach, Via Natural or Artificial Opening Endoscopic, Diagnostic (ICD-10-PCS; 2019-03-01)
PROC: 5A09357 Assistance with Respiratory Ventilation, Less than 24 Consecutive Hours, Continuous Positive Airway Pressure (ICD-10-PCS; 2019-03-03)
PROC: 5A09357 Assistance with Respiratory Ventilation, Less than 24 Consecutive Hours, Continuous Positive Airway Pressure (ICD-10-PCS; 2019-03-04)
PROC: 0W993ZZ Drainage of Right Pleural Cavity, Percutaneous Approach (ICD-10-PCS; 2019-03-04)
DX: A41.9 Sepsis, unspecified organism (principal); L89.153 Pressure ulcer of sacral region, stage 3; E43 Unspecified severe protein-calorie malnutrition; N17.0 Acute kidney failure with tubular necrosis; J18.9 Pneumonia, unspecified organism; J96.90 Respiratory failure, unspecified, unspecified whether with hypoxia or hypercapnia; L03.116 Cellulitis of left lower limb; M86.8X7 Other osteomyelitis, ankle and foot; E87.1 Hypo-osmolality and hyponatremia; E11.52 Type 2 diabetes mellitus with diabetic peripheral angiopathy with gangrene; L02.612 Cutaneous abscess of left foot; M31.8 Other specified necrotizing vasculopathies; R65.20 Severe sepsis without septic shock; E11.22 Type 2 diabetes mellitus with diabetic chronic kidney disease; R19.7 Diarrhea, unspecified; E11.65 Type 2 diabetes mellitus with hyperglycemia; E11.42 Type 2 diabetes mellitus with diabetic polyneuropathy; N40.0 Benign prostatic hyperplasia without lower urinary tract symptoms; R41.0 Disorientation, unspecified; E87.6 Hypokalemia; E83.42 Hypomagnesemia; D64.9 Anemia, unspecified; F32.9 Major depressive disorder, single episode, unspecified; N18.3 Chronic kidney disease, stage 3 (moderate); I12.9 Hypertensive chronic kidney disease with stage 1 through stage 4 chronic kidney disease, or unspecified chronic kidney disease; E11.43 Type 2 diabetes mellitus with diabetic autonomic (poly)neuropathy; K31.84 Gastroparesis; E11.69 Type 2 diabetes mellitus with other specified complication; L97.529 Non-pressure chronic ulcer of other part of left foot with unspecified severity; R33.9 Retention of urine, unspecified; B95.2 Enterococcus as the cause of diseases classified elsewhere; B95.1 Streptococcus, group B, as the cause of diseases classified elsewhere; E11.621 Type 2 diabetes mellitus with foot ulcer; Z68.30 Body mass index [BMI] 30.0-30.9, adult; Z79.84 Long term (current) use of oral hypoglycemic drugs; Z79.82 Long term (current) use of aspirin; Z82.49 Family history of ischemic heart disease and other diseases of the circulatory system; Z83.6 Family history of other diseases of the respiratory system